=== PATIENT | male | born 1970 | race Caucasian/White ===

== ENCOUNTER → 2018-04-09 08:41 | Outpatient (CLI) | payer OTHER, SELFPAY ==
--- NOTE | 2018-04-09 08:45 | RAD_ITS ---
STUDY: X-RAY - PELVIS AND LEFT HIP REASON FOR EXAM: Male, 47 years old. Left hip pain, no known injury TECHNIQUE: Radiological exam, hip, unilateral, with pelvis when performed; 2 or 3 views. COMPARISON: None. FINDINGS: There is a non-specific bowel gas pattern. Normal visualized soft tissue structures. There is sclerosis of the superior left SI joint. Normal bilateral superior and inferior pubic rami. Normal pubic symphysis. Normal bilateral ischial tuberosities. There are moderate degenerative changes of the left hip joint. Mild degenerative changes of the right hip are also noted. There are degenerative changes of the visualized lower lumbar spine. RAD/Hip 2-3 Views with Pelvis IMPRESSION: 1. Moderate degenerative changes of the left hip joint, and mild degenerative changes of the right hip joint. 2. Sclerotic changes of the superior left SI joint. 3. Degenerative changes of the lower lumbar spine. Electronically Signed: Jarad Gardner MD at 17:53 EDT , Service support ,
== END ==
PROVIDERS: Family Provider Internal Medicine; PCP Internal Medicine; Visit Provider Orthopaedic Surgery
DX: M16.0 Bilateral primary osteoarthritis of hip (principal); M51.36 Other intervertebral disc degeneration, lumbar region
CPT/HCPCS: 73502

== ENCOUNTER 2018-05-28 16:30 | Outpatient (RCR) | payer OTHER, SELFPAY ==
--- NOTE | 2018-04-16 17:07 | HP.PTEVAL_ITS ---
Patient's Visit Information XAVIER MARC is a 47 year old M referred to Physical Therapy by Xavier Aquino DO with a diagnosis of L IT BAnd, Gt bursitis. Date of Evaluation: 04/16/18 Physical Therapist: Mercedez Franks - Visit Plan Frequency: 2x /Week Duration: 6 Weeks Plan: 2X/ week for 4-6 weeks for foam rolling to L hip and IT band, Stretching of B pirifomis, IT band, HS and gastroc, strengthening of B hip extensors, hip in general and core with HEP - Subjective Subjective: His hurt has been hurting for awhile. 3 years ago on the R he had achilles tendon with spurs. Dr Aquino saw a growth that is digging into the IT band. If he walks fast or long distances the hip is in a lot of pain. He had little relief with his achilles so he is not to excited about doing it with his hip. Walking long distances or walking fast.....his popping Dr Aquino thinks is from the band being so taught. He can lay on his L side. Stairs: he has a little bit of discomfort with ascending with the L leg...down is not too bad. - Pain L hip pain Pain Intensity (Out of 10): 1 Pain Intensity Range: 7 - Objective Gait: walks with decrease stance time on the L LE. Trunk AROM: flex 50%, ext 25%, SB B 50%. Tight B IT bands (L worse than R), piriformis (R worse than L), tight B HS and gastroc. No tenderness at the greater trochanter on the L. Tender along the L IT band. LE MMT: hip flex B 4+/5, hip abd R 4+/5 and L 4/5 , hip ext B 3+/5, knee flex R 4+/5 and L 4/5. B knee ext 4+/5, able to walk on heels and toes without difficulty but a little disconfort in the L hip. - Goals Goal 1:: I HEP Goal Time Frame: 2 Weeks Goal 2:: Decrease pain with walking to about 2/10 Goal Time Frame: 4-6 Weeks Goal 3:: Increase L LE flexabiltiy to be able to complete HS, Piriformis, and IT band stretches with out pain or difficulty Goal Time Frame: 4-6 Weeks Goal 4:: Increas B hip extensor strength to 4/5 Goal Time Frame: 4-6 Weeks - Rehabilitation Potential Rehabilitation Potential: Good - Anticipated Interventions Patient/Client Instruction: Educate patient on: Condition, Plan of Care For the Purpose of:: To decrease pain, To increase ROM, To improve nutrient delivery to tissue, To improve muscle performance and motor function, To improve ability to perform ADL's, To increase tolerance to activity/condition/ position, To improve performance and independence with ADL's, To improve health of tissue, To decrease soft tissue restriction, To increase flexibility/ROM Therapeutic Exercise to Include: Strength training, Flexibilty training, Passive ROM, Active ROM For the Purpose of:: To decrease pain, To increase ROM, To improve nutrient delivery to tissue, To improve muscle performance and motor function, To improve ability to perform ADL's, To increase tolerance to activity/condition/ position, To improve performance and independence with ADL's, To improve health of tissue, To decrease soft tissue restriction, To increase flexibility/ROM Manual Therapy Techniques to Include: Passive ROM, Soft tissue mobilization For the Purpose of:: To increase ROM, To improve nutrient delivery to tissue, To improve muscle performance and motor function, To improve health of tissue, To increase flexibility/ROM Thermo therapy (hot pack): Yes Ultrasound (thermal/non thermal): Yes For the Purpose of:: To decrease pain, To increase ROM, To improve nutrient delivery to tissue, To improve ability to perform ADL's Thank you for the opportunity to evaluate your patient. For Medicare and Medicare HMO plans, please review the plan of care and approve it. It will need to be FAXED BACK to us at [phone] for Medicare purposes. Please let me know if there are questions or concerns regarding this plan of care. Physician Signature: Date:
--- NOTE | 2018-05-09 16:30 | DT_ITS ---
This patient was seen during an EMR downtime May 05, 2018 - May 12, 2018. This patient may have a combination of paper and electronic documentation or all paper documentation. All documentation is viewable within the e-chart portion of [facility] for each patient visit.
--- NOTE | 2018-05-28 16:54 | HP.PTDCSUM ---
HP - PT D/C Summary It has been my pleasure to treat XAVIER MARC under orders from Xavier Aquino DO, for the diagnosis of L IT BAnd, Gt bursitis for a total of 6 visit(s). Discharge Date: 05/28/18 Please see the following information for a summary of their discharge status. - Subjective Subjective: dog got out and tried to catch him and he went about 3-4 blocks and both sides were both inflammed and could barely walk. He feel that the spurs need to comeout. Every day walking is ok but as soon as he goes fast or longer distances. He is going to schedule an appointment for a follow up because the problem is still there. Both sides were really inflammed after trying to get the dogs (-07/11) pain. He feels that the R is just as bad as the L. No N&T and then pain goes to the bottom of the hip. It literally feels that it is littlerally going to pop. He reports that he is foam rolling at home but everything is still tight. - Pain L hip pain Pain Intensity (Out of 10): 0 - Overall Improvement % Improvement: 10 - Objective Objective/Function: Pt pain is down to 2/10 with regular walking but if has to increase stride or speed the pain gets worse. Hip extension strength: LE flexability: tightness remains with ITband (and tenderness to palpation), HS and piriformis. Hip ext B strength 4/5 - Goals Goal 1:: I HEP Goal Progress: Goal Met Goal 2:: Decrease pain with walking to about 2/10 Goal Progress: Goal Met Goal 3:: Increase L LE flexabiltiy to be able to complete HS, Piriformis, and IT band stretches with out pain or difficulty Goal Progress: Progressing Goal 4:: Increas B hip extensor strength to 4/5 Goal Progress: Goal Met - Plan Plan: DC PT back to physician for reassessment. - D/C Information Discharge Comments: DC PT back to physican reassessment If there are questions or concerns regarding this patient's physical therapy, please feel free to call me at [phone]. Thank you for the referral of this patient. Sincerely, Mercedez Franks
== END 2018-05-28 18:21 | disposition home or self-care (01) ==
LOC: PT 16:30
PROVIDERS: Family Provider Internal Medicine; PCP Internal Medicine; Visit Provider Orthopaedic Surgery
DX: M76.32 Iliotibial band syndrome, left leg (principal); M70.62 Trochanteric bursitis, left hip
CPT/HCPCS: 97110; 97161; 97530

== ENCOUNTER → 2018-06-17 15:01 | Outpatient (CLI) | payer OTHER, SELFPAY ==
--- NOTE | 2018-06-17 15:03 | RAD_ITS ---
STUDY: X-RAY - PELVIS AND RIGHT HIP REASON FOR EXAM: Male, 47 years old. Pain TECHNIQUE: Radiological exam, hip, unilateral, with pelvis when performed; 2 or 3 views. COMPARISON: X-ray 04/09/2018 FINDINGS: There is no fracture. There is no osseous destruction. There is no osteonecrosis. The joint spaces are well maintained. The symphysis pubis and SI joints are intact. There is degenerative disease of the lumbar spine. RAD/Hip 2-3 Views with Pelvis IMPRESSION: Intact bony pelvis Degenerative disease of the lumbar spine No significant change Electronically Signed: Tommy Javier MD at 22:05 EDT Tel , Service support ,
== END ==
PROVIDERS: Family Provider Internal Medicine; PCP Internal Medicine; Visit Provider Orthopaedic Surgery
DX: M25.551 Pain in right hip (principal)
CPT/HCPCS: 73502

== ENCOUNTER → 2018-07-07 11:04 | Outpatient (CLI) | payer OTHER, SELFPAY ==
--- NOTE | 2018-07-07 11:16 | MRI_ITS ---
STUDY: MRI LEFT HIP REASON FOR EXAM: Left hip pain for 2 years. TECHNIQUE: Standardized fat and water weighted pulse sequences were obtained in all 3 orthogonal planes. COMPARISON: Radiographs 04/09/2018. FINDINGS: There is mild left hip arthrosis with small marginal osteophytes of the acetabulum and femoral head (T1 coronal image 17) and mild partial-thickness chondral loss (proton-density sagittal image 9). There is tear/degeneration of the left anterosuperior labrum (proton density sagittal images 9, 10). Normal femoral head. Normal femoral neck and intratrochanteric region. Normal gluteus minimus, medius and iliopsoas tendons and distal insertions. There is no trochanteric, iliopsoas or iliopectineal bursitis. Normal superior and inferior pubic rami. Normal pubic symphysis. Normal ischial tuberosity. Normal origin of the hamstring tendons. Normal visualized iliac wing, sacroiliac joint, and sacral ala. Normal visualized soft tissue structures of the pelvis. MRI/Lower Ext Joint Only (Routine) IMPRESSION: Mild left hip arthrosis. Tear/degeneration of the left anterosuperior labrum. No demonstrated trochanteric bursitis or gluteal tendinosis. Electronically Signed: Adriel Luther MD at 14:04 EDT Tel , Service support ,
== END ==
PROVIDERS: Family Provider Internal Medicine; PCP Internal Medicine; Visit Provider Orthopaedic Surgery
DX: M76.30 Iliotibial band syndrome, unspecified leg (principal); M70.62 Trochanteric bursitis, left hip; M76.02 Gluteal tendinitis, left hip
CPT/HCPCS: 73721

== ENCOUNTER → 2018-08-13 10:11 | Outpatient (CLI) | payer OTHER, SELFPAY ==
--- NOTE | 2018-08-13 10:35 | RAD_ITS ---
STUDY: X-RAY - LUMBAR SPINE REASON FOR EXAM: Male, 47 years old. Sciatic pain right side TECHNIQUE: 3 view(s) of the lumbar spine were obtained. COMPARISON: None FINDINGS: Normal lumbar lordosis. There is no substantial scoliosis. There is a normal alignment of the vertebrae. There is multilevel endplate spondylosis of the lumbar vertebrae. There is multi-level degenerative disc disease with multi-level disc space narrowing. There are atherosclerotic vascular calcifications. The soft tissue structures are unremarkable. RAD/Lumbar Spine 2 or 3 Views IMPRESSION: Degenerative changes of the spine, as detailed above. Electronically Signed: Dylan Valderrama MD at 17:15 EDT , Service support ,
== END ==
PROVIDERS: Family Provider Internal Medicine; PCP Internal Medicine; Visit Provider Anesthesiology Pain Medicine
DX: M47.896 Other spondylosis, lumbar region (principal); M51.36 Other intervertebral disc degeneration, lumbar region; M48.061 Spinal stenosis, lumbar region without neurogenic claudication
CPT/HCPCS: 72100

== ENCOUNTER → 2018-08-28 06:39 | Outpatient (CLI) | payer OTHER, SELFPAY ==
--- NOTE | 2018-08-28 06:47 | MRI_ITS ---
STUDY: MRI LUMBAR SPINE WITHOUT CONTRAST REASON FOR EXAM: Male, 47 years old. Back pain and right sciatica TECHNIQUE: Standardized fat and water weighted pulse sequences were obtained in the sagittal and axial planes. COMPARISON: None FINDINGS: T12-L1: Normal endplates. Normal disc height, hydration and morphology. Normal bilateral facet joints. Normal central canal and bilateral lateral recesses. Normal bilateral intervertebral neural foramina. Normal lumbar lordosis. There is no substantial scoliosis. Normal conus medullaris that terminates at T12-L1 L1-2: Mild endplate spurring.. Normal disc height, hydration and minimal annular bulge.. Normal bilateral facet joints. Normal central canal and bilateral lateral recesses. Normal bilateral intervertebral neural foramina. L2-3: Mild endplate spurring.. Normal disc height, desiccation and mild annular bulge. Minor facet arthropathy greater on the left.. Normal central canal. Mild right lateral recess and neuroforaminal encroachment with moderate narrowing on the left L3-4: Mild endplate spurring.. Normal disc height, desiccation and mild annular bulge. Minor facet arthropathy and thickening of ligamenta flava.. Minor narrowing the central canal. Moderate bilateral recess and neural foraminal stenosis exaggerated by shortened pedicles. L4-5: Mild endplate spurring.. Normal disc height, desiccation and moderate annular bulge. Bilateral facet arthropathy and thickening of ligamenta flava. Mild narrowing of the central canal. Moderate bilateral recess and neuroforaminal stenosis exaggerated by shortened pedicles L5-S1: Mild endplate spurring.. Normal disc height, desiccation and minor bulging annulus with small right posterolateral/foraminal disc protrusion. Bilateral facet arthropathy.. Normal central canal. Moderate bilateral recess. Moderate left lateral recess stenosis and more severe narrowing on the right. Normal visualized sacral ala. Normal visualized paraspinous soft tissue structures. MRI/Spine Lumbar (Routine) IMPRESSION: Multilevel spinal stenosis secondary to disc disease and facet arthropathy exaggerated by shortened pedicles most severe on the right at L5-S1. Findings as above. Electronically Signed: Sam Roche MD at 18:31 EDT , Service support ,
== END ==
PROVIDERS: Family Provider Internal Medicine; PCP Internal Medicine; Referring Provider Anesthesiology Pain Medicine; Visit Provider Anesthesiology Pain Medicine
DX: M48.07 Spinal stenosis, lumbosacral region (principal); M46.87 Other specified inflammatory spondylopathies, lumbosacral region; M79.606 Pain in leg, unspecified
CPT/HCPCS: 72148

== ENCOUNTER → 2018-09-15 08:05 | Outpatient (CLI) | payer OTHER, SELFPAY ==
--- NOTE | 2018-09-15 08:09 | US_ITS ---
STUDY: ABDOMINAL ULTRASOUND REASON FOR EXAM: Male, 47 years old. Hemochromatosis TECHNIQUE: Transabdominal ultrasound was performed with real-time and static becerril scale imaging. TECHNICAL QUALITY: Adequate. COMPARISON: May 03, 2017 FINDINGS: Liver: The liver measures 19 cm. There is increased echogenicity consistent with fatty infiltration. The bile ducts are within normal limits. There is hepatic color flow. The direction of portal flow is hepatopetal. There is no demonstrated mass lesion. Portal vein measurement: Gallbladder: Normal distended gallbladder. The gallbladder wall measures 2.5 mm. There is a negative sonographic Taylor's sign. An 8 mm stone is present in the gallbladder lumen. A 6 mm polyp versus focal adenomyomatosis is also present, unchanged. Common Bile Duct (C.B.D.): The common bile duct measures 4.6 mm. Pancreas: Normal size of the head, body and tail of the pancreas. There is normal echogenicity of the pancreas. There is no demonstrated pancreatic mass or cyst. Spleen: Normal size of the spleen. The spleen measures 11.5 cm. Right Kidney: Normal size of the right kidney. The right kidney measures 12.3 x 4.8 x 4.9 cm. Normal renal cortex. The right cortex measures 1.5 cm. There is no demonstrated renal mass or cyst. There is no right hydronephrosis. Left Kidney: Normal size of the left kidney. The left kidney measures 11.8 x 5.6 x 5.2 cm. Normal renal cortex. The left cortex measures 1.4 cm. There is no demonstrated renal mass or cyst. There is no left hydronephrosis. Aorta: Normal I.V.C.: The IVC is patent. There is no ascites. US/Abdomen Complete IMPRESSION: 8 mm gallstone. A 6 mm gallbladder polyp versus focal adenomyomatosis is also present, unchanged. Hepatomegaly and fatty liver. Mildly prominent common bile duct. Electronically Signed: Jama Cagle MD at 6:14 EDT Tel , Service support ,
== END ==
PROVIDERS: Family Provider Internal Medicine; PCP Internal Medicine; Referring Provider Nurse Practitioner Family; Visit Provider Nurse Practitioner Family
DX: E83.110 Hereditary hemochromatosis (principal)
CPT/HCPCS: 76700

== ENCOUNTER → 2019-05-11 06:43 | Outpatient (CLI) | payer OTHER, SELFPAY ==
[2019-03-18 14:59] VITALS: BMI 35.4
[2019-05-11 07:26] LABS: Absolute Lymphocyte Count 2.39 X10^3/ul (0.83-4.51); Absolute Neutrophil Count 2.5 X10^3/uL (2.0-7.7); Basophil# 0.05 X10^3/uL; Basophil% 0.9 % (0-1); Eosinophils% 1.7 % (0-5); Hemoglobin 15.8 g/dl (13.0-16.5); Lymphocyte # 2.39 X10^3/ul (4.0); Lymphocyte % 41.8 % (19-41); Mean Corp Hgb Conc 35.1 g/gl (32-36); Mean Corpuscular Hgb 31.8 pg (27.0-32.0); Mean Corpuscular Volume 90.5 fL (80-94); Mean Platelet Vol. 9.8 fl (6.2-12.0); Monocyte# 0.67 X10^3/uL; Monocyte% 11.7 % (0-10); Neutrophil # 2.51 X10^3/uL (2.7-7.7); Neutrophil % 43.9 % (47-70); Platelet Count 214 K/mm3 (150-450); RBC Distribution Width CV 12.6 % (11.6-14.6); RBC Distribution Width SD 41.5 fl (35.1-43.9); Red Blood Count 4.97 M/mm3 (4.6-6.2); White Blood Count 5.7 K/mm3 (4.4-11.0)
[2019-05-11 07:48] LABS: ALB/GLOB Ratio 1.1 RATIO (0.9-2.4); AST(SGOT) 16 U/L (15-37); Alanine Aminotransfer ALT/SGPT 26 U/L (16-61); Alkaline Phosphatase 56 U/L (45-117); Anion Gap 12 (5-15); BUN 18 mg/dL (7-18); BUN/Creat Ratio 16.1 RATIO (10-20); Calcium,Total 9.4 mg/dL (8.5-10.1); Chloride 104 mmol/L (98-107); Creatinine, Serum 1.12 mg/dL (0.70-1.30); EST Glomerular Filtration Rate 74 mL/min (>60); Est Glom Filt Rate - Afr Amer 89 mL/min (>60); Ferritin 46 ng/mL (26-388); Globulin 3.7 g/dL (2.2-4.2); Glucose 148 mg/dL (74-106); Potassium 3.8 mmol/L (3.5-5.1); Protein, Total 7.7 g/dL (6.4-8.2); Sodium Level 144 mmol/L (136-145)
[2019-05-11 07:57] LABS: POSITIVE COUNT NO; POSITIVE DIFFERENTIAL NO; POSITIVE MORPHOLOGY NO
== END ==
PROVIDERS: Family Provider Internal Medicine; PCP Internal Medicine; Referring Provider Nurse Practitioner Family; Visit Provider Nurse Practitioner Family
DX: E83.110 Hereditary hemochromatosis (principal)
CPT/HCPCS: 36415; 80053; 82728; 85025

== ENCOUNTER → 2019-08-10 06:55 | Outpatient (CLI) | payer OTHER, SELFPAY ==
[2019-05-13 15:05] VITALS: BMI 36.6
[2019-08-10 07:23] LABS: Absolute Lymphocyte Count 2.25 X10^3/uL (0.83-4.51); Absolute Neutrophil Count 2.8 X10^3/uL (2.0-7.7); Basophil# 0.07 X10^3/uL; Basophil% 1.2 % (0-1); Eosinophil# 0.22 X10^3/uL; Eosinophils% 3.7 % (0-5); Hemoglobin 14.3 g/dL (13.0-16.5); Lymphocyte # 2.25 X10^3/ul (4.0); Lymphocyte % 37.4 % (19-41); Mean Corp Hgb Conc 34.9 g/dL (32-36); Mean Corpuscular Hgb 31.1 pg (27.0-32.0); Mean Corpuscular Volume 89.1 fL (80-94); Mean Platelet Vol. 9.5 fl (6.2-12.0); Monocyte# 0.64 X10^3/uL; Monocyte% 10.6 % (0-10); NRBC Flagged by Analyzer 0 % (0-5); Neutrophil # 2.83 X10^3/uL (2.7-7.7); Neutrophil % 46.9 % (47-70); Platelet Count 200 K/mm3 (150-450); RBC Distribution Width CV 11.7 % (11.6-14.6); RBC Distribution Width SD 37.7 fl (35.1-43.9)
[2019-08-10 07:50] LABS: AST(SGOT) 17 U/L (15-37); Alanine Aminotransfer ALT/SGPT 27 U/L (16-61); Albumin, Serum 3.8 g/dL (3.2-5.0); Alkaline Phosphatase 59 U/L (45-117); Anion Gap 6 (5-15); BUN 15 mg/dL (7-18); BUN/Creat Ratio 12.5 RATIO (10-20); Calcium,Total 8.6 mg/dL (8.5-10.1); Chloride 103 mmol/L (98-107); EST Glomerular Filtration Rate 68 mL/min (>60); Est Glom Filt Rate - Afr Amer 82 mL/min (>60); Ferritin 70 ng/mL (26-388); Globulin 3.7 g/dL (2.2-4.2); Glucose 147 mg/dL (74-106); Iron 199 ug/dL (65-175); Iron Binding Capacity,Total 280 ug/dL (250-450); PERCENT IRON SATURATION 71.1 % (15.0-55.0); Potassium 3.7 mmol/L (3.5-5.1); Protein, Total 7.5 g/dL (6.4-8.2); Sodium Level 139 mmol/L (136-145)
== END ==
PROVIDERS: Family Provider Internal Medicine; PCP Internal Medicine; Referring Provider Internal Medicine Medical Oncology; Visit Provider Internal Medicine Medical Oncology
DX: E83.110 Hereditary hemochromatosis (principal)
CPT/HCPCS: 36415; 80053; 82728; 83540; 83550; 85025; A4216

== ENCOUNTER → 2019-11-09 06:46 | Outpatient (CLI) | payer OTHER, SELFPAY ==
[2019-08-12 15:03] VITALS: BMI 36.3
[2019-11-09 07:26] LABS: Absolute Lymphocyte Count 3.13 X10^3/uL (0.83-4.51); Basophil# 0.07 X10^3/uL; Eosinophil# 0.19 X10^3/uL; Eosinophils% 2.7 % (0-5); Hematocrit 44.4 % (40-54); Hemoglobin 15.4 g/dL (13.0-16.5); Lymphocyte # 3.13 X10^3/ul (4.0); Mean Corp Hgb Conc 34.7 g/dL (32-36); Mean Corpuscular Volume 89.3 fL (80-94); Mean Platelet Vol. 9.8 fl (6.2-12.0); Monocyte# 0.54 X10^3/uL; Monocyte% 7.8 % (0-10); NRBC Flagged by Analyzer 0 % (0-5); Neutrophil % 43.2 % (47-70); Platelet Count 258 K/mm3 (150-450); RBC Distribution Width CV 11.8 % (11.6-14.6); Red Blood Count 4.97 M/mm3 (4.6-6.2)
[2019-11-09 07:58] LABS: ALB/GLOB Ratio 1.1 RATIO (0.9-2.4); AST(SGOT) 15 U/L (15-37); Alanine Aminotransfer ALT/SGPT 28 U/L (16-61); Albumin, Serum 4.1 g/dL (3.2-5.0); Alkaline Phosphatase 59 U/L (45-117); Anion Gap 7 (5-15); BUN 20 mg/dL (7-18); BUN/Creat Ratio 18.7 RATIO (10-20); Calcium,Total 9.2 mg/dL (8.5-10.1); Chloride 103 mmol/L (98-107); Creatinine, Serum 1.07 mg/dL (0.70-1.30); EST Glomerular Filtration Rate 78 mL/min (>60); Est Glom Filt Rate - Afr Amer 94 mL/min (>60); Ferritin 85 ng/mL (26-388); Globulin 3.7 g/dL (2.2-4.2); Glucose 143 mg/dL (74-106); Iron 223 ug/dL (65-175); Iron Binding Capacity,Total 295 ug/dL (250-450); LDH 143 U/L (87-241); PERCENT IRON SATURATION 75.6 % (15.0-55.0); Potassium 3.5 mmol/L (3.5-5.1); Protein, Total 7.8 g/dL (6.4-8.2); Sodium Level 139 mmol/L (136-145)
[2019-11-09 14:49] LABS: Xtra Tube EP Lab EXTRA TUBE
== END ==
PROVIDERS: Family Provider Internal Medicine; PCP Internal Medicine; Referring Provider Internal Medicine Medical Oncology; Visit Provider Internal Medicine Medical Oncology
DX: E83.110 Hereditary hemochromatosis (principal)
CPT/HCPCS: 36415; 80053; 82728; 83540; 83550; 83615; 85025

== ENCOUNTER → 2019-11-10 17:22 | Outpatient (CLI) | payer OTHER, SELFPAY ==
[2019-08-12 15:03] VITALS: BMI 36.3
--- NOTE | 2019-11-10 17:35 | RAD_ITS ---
STUDY: X-RAY - CERVICAL SPINE REASON FOR EXAM: Male, 48 years old. Pain TECHNIQUE: 3 view(s) of the cervical spine were obtained. COMPARISON: None FINDINGS: Normal anterior atlantoaxial articulation. Normal odontoid process. Normal cervical lordosis. Normal vertebral bodies. Mild spurring at the mid cervical endplates between C4-C6. Normal disc space heights. The soft tissue structures are unremarkable. RAD/Cerv Spine 2 or 3 Views IMPRESSION: Mild degenerative changes of the visualized cervical spine. Electronically Signed: Manas Deutsch DO at 19:46 EST Tel [phone], Service support ,
== END ==
PROVIDERS: Family Provider Internal Medicine; PCP Internal Medicine; Referring Provider Anesthesiology Pain Medicine; Visit Provider Anesthesiology Pain Medicine
DX: M54.2 Cervicalgia (principal)
CPT/HCPCS: 72040

== ENCOUNTER → 2020-03-29 09:32 | Outpatient (CLI) | payer OTHER, SELFPAY ==
[2020-02-11 15:26] VITALS: BMI 36.8
[2020-03-29 10:16] LABS: Absolute Lymphocyte Count 2.06 X10^3/uL (0.83-4.51); Absolute Neutrophil Count 3.6 X10^3/uL (2.0-7.7); Basophil# 0.05 X10^3/uL; Basophil% 0.8 % (0-1); Eosinophil# 0.08 X10^3/uL; Eosinophils% 1.3 % (0-5); Hematocrit 43.2 % (40-54); Lymphocyte # 2.06 X10^3/ul (4.0); Lymphocyte % 32.7 % (19-41); Mean Corp Hgb Conc 34.7 g/dL (32-36); Mean Corpuscular Hgb 30.7 pg (27.0-32.0); Mean Corpuscular Volume 88.5 fL (80-94); Mean Platelet Vol. 9.7 fl (6.2-12.0); Monocyte% 7.9 % (0-10); NRBC Flagged by Analyzer 0 % (0-5); Neutrophil % 57.1 % (47-70); Platelet Count 224 K/mm3 (150-450); RBC Distribution Width SD 38.3 fl (35.1-43.9); Red Blood Count 4.88 M/mm3 (4.6-6.2); White Blood Count 6.3 K/mm3 (4.4-11.0)
[2020-03-29 10:20] LABS: Glucose, Dipstick 1000 mg/dl (Normal); Ketone-Dipstick 5 mg/dl (Negative); Leukocyte Esterase-Dipstick Negative /ul (Negative); Nitrite-Dipstick Negative (Negative); Occult Blood-Urine 25 /ul (Negative); Protein-Dipstick 30 mg/dl (Negative); Specific Gravity, Urine 1.025 (1.002-1.030); Urine Bilirubin Dipstick Negative (Negative); Urine Urobilinogen Normal (Normal)
[2020-03-29 10:25] LABS: Color, Urine Yellow (Yellow); Urine Clarity Sl Cloudy (Clear)
[2020-03-29 10:40] LABS: Microalbumin,Random Urine 45.7 mg/L (NO RANGE EST.); Microalbumin:Creatinine Ratio 26.4 mg/g CRE (<30 mg/g CRE)
[2020-03-29 10:51] LABS: Hemoglobin A1c 7.7 % (4.2-6.3)
[2020-03-29 10:56] LABS: ALB/GLOB Ratio 1.2 RATIO (0.9-2.4); AST(SGOT) 18 U/L (15-37); Alanine Aminotransfer ALT/SGPT 30 U/L (16-61); Alkaline Phosphatase 60 U/L (45-117); Anion Gap 6 (5-15); BUN 16 mg/dL (7-18); BUN/Creat Ratio 16.9 RATIO (10-20); Calcium,Total 8.9 mg/dL (8.5-10.1); Chloride 103 mmol/L (98-107); Cholesterol 127 mg/dL (200); Creatinine, Serum 0.94 mg/dL (0.70-1.30); EST Glomerular Filtration Rate 89 mL/min (>60); Est Glom Filt Rate - Afr Amer 108 mL/min (>60); Globulin 3.4 g/dL (2.2-4.2); Glucose 153 mg/dL (74-106); High Density Lipoprotein 46 mg/dL; Potassium 3.4 mmol/L (3.5-5.1); Protein, Total 7.4 g/dL (6.4-8.2); Sodium Level 137 mmol/L (136-145); Thyroid Stim Hormone (TSH) 0.02 uIU/mL (0.358-3.74); Triglycerides 122 mg/dL; Very Low Density Lipoprotein 24 mg/dL (5-40)
== END ==
PROVIDERS: PCP Internal Medicine; Referring Provider Internal Medicine; Visit Provider Internal Medicine
DX: E78.2 Mixed hyperlipidemia (principal); E11.65 Type 2 diabetes mellitus with hyperglycemia; E03.9 Hypothyroidism, unspecified; Z12.5 Encounter for screening for malignant neoplasm of prostate
CPT/HCPCS: 36415; 80053; 80061; 81002; 82043; 82570; 83036; 84153; 84443; 85025; G0103

== ENCOUNTER → 2020-05-13 08:00 | Outpatient (CLI) | payer OTHER, SELFPAY ==
[2020-02-11 15:26] VITALS: BMI 36.8
--- NOTE | 2020-05-13 08:07 | RAD_ITS ---
STUDY: X-RAY - THORACIC SPINE REASON FOR EXAM: Male, 49 years old. PAIN IN UPPER BACK BETWEEN SHOULDER BLADES FOR YEARS. NO KNOWN INJURY. PATIENT STATES HAS A HX OF SPINAL STENOSIS. TECHNIQUE: 3 view(s) of the thoracic spine were obtained. COMPARISON: None. FINDINGS: There is an increase in the normal thoracic kyphosis. There is no substantial scoliosis. There is demineralization of the thoracic spine with endplate spondylosis. There is multilevel disc space narrowing of the thoracic spine. The soft tissue structures are unremarkable. RAD/Thoracic Spine 3 Views IMPRESSION: Multilevel disc space narrowing and degeneration anterior spondylosis. Electronically Signed: Rodrigo Ha, at 11:04 EDT , Service support ,
== END ==
PROVIDERS: PCP Internal Medicine; Referring Provider Anesthesiology Pain Medicine; Visit Provider Anesthesiology Pain Medicine
DX: M47.814 Spondylosis without myelopathy or radiculopathy, thoracic region (principal); M48.04 Spinal stenosis, thoracic region
CPT/HCPCS: 72072

== ENCOUNTER → 2020-08-09 06:45 | Outpatient (CLI) | payer OTHER, SELFPAY ==
[2020-02-11 15:26] VITALS: BMI 36.8
[2020-08-09 07:31] LABS: Absolute Lymphocyte Count 2.36 X10^3/uL (0.83-4.51); Absolute Neutrophil Count 1.8 X10^3/uL (2.0-7.7); Basophil# 0.04 X10^3/uL; Basophil% 0.8 % (0-1); Eosinophil# 0.16 X10^3/uL; Eosinophils% 3.3 % (0-5); Hematocrit 41.7 % (40-54); Hemoglobin 14.5 g/dL (13.0-16.5); Lymphocyte # 2.36 X10^3/ul (4.0); Lymphocyte % 48.5 % (19-41); Mean Corp Hgb Conc 34.8 g/dL (32-36); Mean Corpuscular Hgb 31.7 pg (27.0-32.0); Mean Corpuscular Volume 91.2 fL (80-94); Mean Platelet Vol. 9.8 fl (6.2-12.0); Monocyte# 0.47 X10^3/uL; Monocyte% 9.7 % (0-10); NRBC Flagged by Analyzer 0 % (0-5); Neutrophil # 1.83 X10^3/uL (2.7-7.7); Neutrophil % 37.5 % (47-70); Platelet Count 227 K/mm3 (150-450); RBC Distribution Width CV 12.4 % (11.6-14.6); RBC Distribution Width SD 41.4 fl (35.1-43.9); Red Blood Count 4.57 M/mm3 (4.6-6.2); White Blood Count 4.9 K/mm3 (4.4-11.0)
[2020-08-09 08:17] LABS: ALB/GLOB Ratio 1.1 RATIO (0.9-2.4); AST(SGOT) 18 U/L (15-37); Alanine Aminotransfer ALT/SGPT 24 U/L (16-61); Albumin, Serum 3.9 g/dL (3.2-5.0); Alkaline Phosphatase 53 U/L (45-117); Anion Gap 5 (5-15); BUN 17 mg/dL (7-18); BUN/Creat Ratio 16.2 RATIO (10-20); Calcium,Total 8.9 mg/dL (8.5-10.1); Chloride 105 mmol/L (98-107); Creatinine, Serum 1.05 mg/dL (0.70-1.30); EST Glomerular Filtration Rate 79 mL/min (>60); Est Glom Filt Rate - Afr Amer 96 mL/min (>60); Ferritin 78 ng/mL (26-388); Globulin 3.4 g/dL (2.2-4.2); Glucose 110 mg/dL (74-106); LDH 158 U/L (87-241); Potassium 3.4 mmol/L (3.5-5.1); Protein, Total 7.3 g/dL (6.4-8.2); Sodium Level 138 mmol/L (136-145)
[2020-08-09 14:51] LABS: Xtra Tube EP Lab EXTRA TUBE
== END ==
PROVIDERS: PCP Internal Medicine; Referring Provider Internal Medicine Medical Oncology; Visit Provider Internal Medicine Medical Oncology
DX: E83.110 Hereditary hemochromatosis (principal)
CPT/HCPCS: 36415; 80053; 82728; 83615; 85025

== ENCOUNTER 2020-09-06 17:49 | Emergency (ER) | payer OTHER, SELFPAY ==
[2020-02-11 15:26] VITALS: BMI 36.8
[2020-09-06 17:50] VITALS: BP 135/83; PULSE 82; RESP 16; TEMP 35.7; O2SAT 99; BMI 36.6
--- NOTE | 2020-09-06 18:55 | ED.DCSUM_ITS ---
History of Present Illness Chief Complaint: Back Informant: Patient Narrative: 49-year-old male presents with concern for right hip pain. Patient states he has had spinal stenosis and pain in his bilateral lower back for many years. States that he was seen at an orthopedist approximately 1 year ago and was told that if he has pain going into his groin be concerned about his hip. Patient states over the past week he has had pain radiating into his groin. States is aching worse with movement. Denies any new trauma. Denies any numbness or tingling. No relieving factors. Does get injections into his back by pain management but is not had one of these in multiple months. Past Medical History - Allergies and Home Meds Allergies/Adverse Reactions: Allergies No Known Allergies Allergy (Verified 09/06/20 17:49) Primary Care Physician: Berenice Tarango DO [Primary Care Provider] - Past Medical History: - - spinal stenosis, hemachomatosis Smoking Status: Never smoker Review of Systems General: Denies: Chills, Fever, Sweats Eyes: Denies: Visual changes - bilaterally, Diplopia ENT: Denies: Rhinorrhea, Sore throat Cardiovascular: Denies: Chest pain, Palpitations Respiratory: Denies: Dyspnea, Cough, Dyspnea on exertion Gastrointestinal: Denies: Abdominal pain, Nausea, Vomiting, Diarrhea, Melena, Hematochezia Genitourinary: Denies: Dysuria, Hematuria, Frequency Musculoskeletal: Reports: Arthralgias. Denies: Back pain, Extremity Pain Skin: Denies: Rash, Wounds Neurological: Denies: Headache, Weakness, Numbness Physical Exam Vital Signs/Narrative: Vital Signs Temp Pulse Resp BP Pulse Ox 09/06/20 17:50 96.2 F L 82 16 135/83 H 99 Inital Vital Signs reviewed: Yes General: Well nourished, Well developed, No Acute Distress Head: Normocephalic, Atraumatic Eyes: Perrl, EOMI ENT: Moist mucous membranes, No rhinorrhea Neck: Supple, Nontender Cardiovascular: Regular rate, Regular rhythm, No murmurs Respiratory: No distress, CTA bilaterally, Chest nontender Abdomen: Soft, Nontender, Nondistended, Normal bowel sounds Back: Nontender, Normal Inspection Extremities: No edema, - - TTP over the right piriformis. No midline tenderness. Full ROM of the right hip. Skin: Normal color, No rash Neurological: Alert, Oriented x3, Cranial nerves II-XII grossly intact, Normal S trength, Normal Sensation Psychological: Normal affect, Normal Mood Diagnostic/Tx/Re-eval Clinical Impression(s) from Imaging Studies Hip/Pelvis X-Ray 09/06/20 19:07 IMPRESSION: Normal x-ray examination of the pelvis and hip. Electronically Signed: Chris June MD at 19:51 EDT , Service support , - Medical Decision Making Patient appears well and nontoxic. Vital signs within normal limits. X-ray of the right hip negative. Patient given Toradol. Advised on Motrin, Tylenol, orthopedic follow-up. Asked to return for new or worsening symptoms. Discharged home in stable condition. Impression: 1. Hip pain 2. Chronic lumbar back pain ED Disposition - Plan for ED Patient: Disposition: Home or Assisted Living Instructions: ED Back Pain Acute or Chronic Referrals: Berenice Tarango DO [Primary Care Provider] -
--- NOTE | 2020-09-06 19:07 | RAD_ITS ---
STUDY: X-RAY - PELVIS AND RIGHT HIP REASON FOR EXAM: Male, 49 years old. INCREASING LOW BACK PAIN AND RIGHT SIDED HIP PAIN THIS WEEK. HX OF SPINAL STENOSIS. TECHNIQUE: 3 views of the pelvis and hip. COMPARISON: 06/17/2018. FINDINGS: There is a non-specific bowel gas pattern. Normal visualized soft tissue structures. Normal bilateral iliac wings, sacroiliac joints and visualized sacrum. Normal bilateral superior and inferior pubic rami. Normal pubic symphysis. Normal bilateral ischial tuberosities. Normal visualized femoral head. Normal acetabulum. Normal hip joint. RAD/HIP, UNI W/ Pelvis 2-3 Views IMPRESSION: Normal x-ray examination of the pelvis and hip. Electronically Signed: Chris June MD at 19:51 EDT , Service support ,
[2020-09-06] MEDS: Ketorolac 15 MG/ML Vial IM (19:33)
[2020-09-06 20:32] VITALS: BP 133/87; PULSE 86; RESP 16
== END 2020-09-06 20:33 | disposition home or self-care (01) ==
PROVIDERS: Emergency Provider Emergency Medicine; PCP Internal Medicine
DX: M25.551 Pain in right hip (principal); M54.5 Low back pain; G89.29 Other chronic pain; Z79.82 Long term (current) use of aspirin
CPT/HCPCS: 73502; 96372; 99282

== ENCOUNTER → 2020-11-07 06:48 | Outpatient (CLI) | payer OTHER, SELFPAY ==
[2020-11-07 07:12] LABS: Absolute Lymphocyte Count 2.31 X10^3/uL (0.83-4.51); Absolute Neutrophil Count 3.1 X10^3/uL (2.0-7.7); Basophil# 0.06 X10^3/uL; Basophil% 0.9 % (0-1); Eosinophil# 0.26 X10^3/uL; Eosinophils% 4.1 % (0-5); Hematocrit 42.2 % (40-54); Hemoglobin 14.5 g/dL (13.0-16.5); Lymphocyte # 2.31 X10^3/ul (4.0); Lymphocyte % 36.1 % (19-41); Mean Corp Hgb Conc 34.4 g/dL (32-36); Mean Corpuscular Hgb 31.5 pg (27.0-32.0); Mean Corpuscular Volume 91.5 fL (80-94); Mean Platelet Vol. 9.9 fl (6.2-12.0); Monocyte# 0.63 X10^3/uL; Monocyte% 9.8 % (0-10); NRBC Flagged by Analyzer 0 % (0-5); Neutrophil # 3.12 X10^3/uL (2.7-7.7); Neutrophil % 48.8 % (47-70); Platelet Count 297 K/mm3 (150-450); RBC Distribution Width CV 13.2 % (11.6-14.6); RBC Distribution Width SD 41.1 fl (35.1-43.9); Red Blood Count 4.61 M/mm3 (4.6-6.2); White Blood Count 6.4 K/mm3 (4.4-11.0)
[2020-11-07 07:30] LABS: ALB/GLOB Ratio 1.1 RATIO (0.9-2.4); AST(SGOT) 13 U/L (15-37); Alanine Aminotransfer ALT/SGPT 34 U/L (16-61); Albumin, Serum 4.1 g/dL (3.2-5.0); Alkaline Phosphatase 68 U/L (45-117); Anion Gap 6 (5-15); BUN 21 mg/dL (7-18); BUN/Creat Ratio 17.8 RATIO (10-20); Calcium,Total 9.2 mg/dL (8.5-10.1); Chloride 103 mmol/L (98-107); Creatinine, Serum 1.18 mg/dL (0.70-1.30); EST Glomerular Filtration Rate 69 mL/min (>60); Est Glom Filt Rate - Afr Amer 83 mL/min (>60); Ferritin 194 ng/mL (26-388); Globulin 3.8 g/dL (2.2-4.2); Glucose 152 mg/dL (74-106); LDH 166 U/L (87-241); Potassium 3.7 mmol/L (3.5-5.1); Protein, Total 7.9 g/dL (6.4-8.2); Sodium Level 138 mmol/L (136-145)
[2020-11-07 14:54] LABS: Xtra Tube EP Lab EXTRA TUBE
== END ==
PROVIDERS: PCP Internal Medicine; Referring Provider Internal Medicine Medical Oncology; Visit Provider Internal Medicine Medical Oncology
DX: E83.110 Hereditary hemochromatosis (principal)
CPT/HCPCS: 36415; 80053; 82728; 83615; 85025

== ENCOUNTER → 2021-01-30 06:55 | Outpatient (CLI) | payer OTHER, SELFPAY ==
[2020-11-09 15:23] VITALS: BMI 36.1
[2021-01-30 07:23] LABS: Absolute Lymphocyte Count 2.14 X10^3/uL (0.83-4.51); Absolute Neutrophil Count 3.6 X10^3/uL (2.0-7.7); Basophil# 0.06 X10^3/uL; Basophil% 0.9 % (0-1); Eosinophil# 0.13 X10^3/uL; Hemoglobin 16.2 g/dL (13.0-16.5); Lymphocyte # 2.14 X10^3/ul (4.0); Lymphocyte % 33.1 % (19-41); Mean Corp Hgb Conc 35.2 g/dL (32-36); Mean Corpuscular Hgb 32.4 pg (27.0-32.0); Mean Platelet Vol. 9.7 fl (6.2-12.0); Monocyte# 0.54 X10^3/uL; Monocyte% 8.3 % (0-10); NRBC Flagged by Analyzer 0 % (0-5); Neutrophil # 3.58 X10^3/uL (2.7-7.7); Neutrophil % 55.4 % (47-70); Platelet Count 253 K/mm3 (150-450); RBC Distribution Width SD 40.2 fl (35.1-43.9); White Blood Count 6.5 K/mm3 (4.4-11.0)
[2021-01-30 07:43] LABS: ALB/GLOB Ratio 1.1 RATIO (0.9-2.4); AST(SGOT) 16 U/L (15-37); Alanine Aminotransfer ALT/SGPT 28 U/L (16-61); Albumin, Serum 4.1 g/dL (3.2-5.0); Alkaline Phosphatase 62 U/L (45-117); Anion Gap 10 (5-15); BUN 19 mg/dL (7-18); Calcium,Total 9.2 mg/dL (8.5-10.1); Chloride 99 mmol/L (98-107); Creatinine, Serum 1.19 mg/dL (0.70-1.30); EST Glomerular Filtration Rate 68 mL/min (>60); Est Glom Filt Rate - Afr Amer 83 mL/min (>60); Ferritin 66 ng/mL (26-388); Globulin 3.9 g/dL (2.2-4.2); Glucose 156 mg/dL (74-106); LDH 171 U/L (87-241); Potassium 3.7 mmol/L (3.5-5.1); Sodium Level 137 mmol/L (136-145)
[2021-01-31 10:15] LABS: AFP, Tumor Marker 1.5 ng/mL (0.0-8.3)
== END ==
PROVIDERS: PCP Internal Medicine; Referring Provider Internal Medicine Medical Oncology; Visit Provider Internal Medicine Medical Oncology
DX: E83.110 Hereditary hemochromatosis (principal)
CPT/HCPCS: 36415; 80053; 82105; 82728; 83615; 85025

== ENCOUNTER 2021-02-16 08:17 | Outpatient (RCR) | payer OTHER, SELFPAY ==
[2021-02-01 14:38] VITALS: BMI 36.3
[2021-02-16] MEDS: COVID-19 VACC, MRNA(PFIZER)/PF 30 MCG/0.3 ML SYRINGE IM (15:01)
[2021-03-09] MEDS: COVID-19 VACC, MRNA(PFIZER)/PF 30 MCG/0.3 ML SYRINGE IM (14:15)
== END 2021-02-16 23:59 ==
LOC: IMMUN 08:17
PROVIDERS: PCP Internal Medicine; Visit Provider Family Medicine
DX: Z23 Encounter for immunization (principal)
CPT/HCPCS: 0001A; 0002A; 91300

== ENCOUNTER → 2021-04-25 06:37 | Outpatient (CLI) | payer OTHER, SELFPAY ==
[2021-02-01 14:38] VITALS: BMI 36.3
--- NOTE | 2021-04-25 06:44 | MRI_ITS ---
STUDY: MRI LEFT ANKLE WITHOUT CONTRAST REASON FOR EXAM: Left posterior and lateral heel pain, evaluate for Achilles tendinitis/possible tear. TECHNIQUE: Standardized fat and water weighted pulse sequences were obtained in all 3 orthogonal planes. COMPARISON: None. FINDINGS: There is a lobulated ganglion cyst anterior to the submalleolar peroneal tendon sheath (T2 axial images 18, 19; T1 sagittal images 18, 19) measuring 1.7 x 1.0 x 1.7 cm (AP x transverse x length). There is a small ganglion cyst posterior to the posterior talofibular ligament (T2 axial image 15) measuring 1.0 cm in transverse and length dimensions. Normal posterior tibialis tendon. Normal flexor digitorum longus tendon. Normal flexor hallucis longus tendon. Normal peroneus longus and brevis tendons. Normal tibialis anterior tendon. Normal extensor hallucis longus tendon. Normal extensor digitorum longus tendons. There is very mild distal Achilles tendinosis with very mild increased intrasubstance signal (inversion recovery series 10 images 20-22) without discrete tendon tear. There is a plantar calcaneal enthesophyte (T1 sagittal image 11). There is no retrocalcaneal bursitis. Normal plantar fascia. There is a small plantar calcaneal enthesophyte. There is mild atrophy with mild partial fat replacement of the abductor digiti minimi muscle (T1 sagittal image 18). Normal distal tibiofibular syndesmotic ligamentous complex. There is mild thickening of the anterior talofibular ligament (T2 axial image 17) suggestive of scarring. Normal calcaneofibular and posterior talofibular ligaments. Normal subtalar ligaments and sinus tarsi. Normal deltoid ligamentous complexes. Normal plantar calcaneonavicular (spring) ligament. Normal tibiotalar articulation. Normal talar dome. Normal subtalar articulations. Normal talonavicular articulation. Normal calcaneocuboid articulation. Normal navicular-cuneiform articulations. MRI/Lower Ext Joint Only (Routine) IMPRESSION: Very mild Achilles tendinosis without demonstrated Achilles tendon tear. Mild scarring of the anterior talofibular ligament. Posterior and plantar calcaneal enthesopathy. Ganglion cyst anterior to the peroneal tendon sheath and a small ganglion cyst posterior to the posterior talofibular ligament. Mild atrophy of the abductor digiti minimi muscle. Electronically Signed: Adriel Luther MD at 10:10 EDT Tel , Service support ,
== END ==
PROVIDERS: PCP Internal Medicine; Referring Provider Podiatrist; Visit Provider Podiatrist
DX: M76.62 Achilles tendinitis, left leg (principal); M67.472 Ganglion, left ankle and foot
CPT/HCPCS: 73721

== ENCOUNTER → 2021-05-02 10:02 | Outpatient (CLI) | payer OTHER, SELFPAY ==
[2021-02-01 14:38] VITALS: BMI 36.3
[2021-05-02 10:54] LABS: Absolute Lymphocyte Count 1.89 X10^3/uL (0.83-4.51); Absolute Neutrophil Count 2.8 X10^3/uL (2.0-7.7); Basophil# 0.06 X10^3/uL; Basophil% 1.1 % (0-1); Eosinophil# 0.08 X10^3/uL; Eosinophils% 1.5 % (0-5); Hematocrit 43.3 % (40-54); Hemoglobin 15.1 g/dL (13.0-16.5); Lymphocyte # 1.89 X10^3/ul (0.83-4.51); Mean Corp Hgb Conc 34.9 g/dL (32-36); Mean Corpuscular Hgb 30.8 pg (27.0-32.0); Mean Corpuscular Volume 88.2 fL (80-94); Mean Platelet Vol. 9.8 fl (6.2-12.0); Monocyte# 0.38 X10^3/uL; Monocyte% 7.2 % (0-10); NRBC Flagged by Analyzer 0 % (0-5); Neutrophil # 2.83 X10^3/uL (2.7-7.7); Platelet Count 216 K/mm3 (150-450); RBC Distribution Width CV 11.9 % (11.6-14.6); RBC Distribution Width SD 38.2 fl (35.1-43.9); Red Blood Count 4.91 M/mm3 (4.6-6.2); White Blood Count 5.3 K/mm3 (4.4-11.0)
[2021-05-02 11:51] LABS: ALB/GLOB Ratio 1.2 RATIO (0.9-2.4); AST(SGOT) 21 U/L (15-37); Alanine Aminotransfer ALT/SGPT 26 U/L (16-61); Albumin, Serum 4.1 g/dL (3.2-5.0); Alkaline Phosphatase 55 U/L (45-117); Anion Gap 6 (5-15); BUN 20 mg/dL (7-18); BUN/Creat Ratio 18.3 RATIO (10-20); Calcium,Total 9.2 mg/dL (8.5-10.1); Chloride 102 mmol/L (98-107); Creatinine, Serum 1.09 mg/dL (0.70-1.30); EST Glomerular Filtration Rate 75 mL/min (>60); Est Glom Filt Rate - Afr Amer 91 mL/min (>60); Ferritin 69 ng/mL (26-388); Free T3 2.3 pg/mL (2.18-3.98); Globulin 3.5 g/dL (2.2-4.2); Glucose 117 mg/dL (74-106); LDH 139 U/L (87-241); Potassium 3.8 mmol/L (3.5-5.1); Protein, Total 7.6 g/dL (6.4-8.2); Sodium Level 136 mmol/L (136-145); T4 Free Direct 1.31 ng/dL (0.76-1.46); Thyroid Stim Hormone (TSH) 0.64 uIU/mL (0.358-3.74)
[2021-05-03 12:54] LABS: AFP, Tumor Marker 1.6 ng/mL (0.0-8.3)
== END ==
PROVIDERS: Internal Medicine Medical Oncology; PCP Internal Medicine; Referring Provider Internal Medicine; Visit Provider Internal Medicine
DX: E11.9 Type 2 diabetes mellitus without complications (principal); E83.110 Hereditary hemochromatosis; R94.6 Abnormal results of thyroid function studies
CPT/HCPCS: 36415; 80053; 82105; 82728; 83036; 83615; 84439; 84443; 84481; 85025

== ENCOUNTER 2021-06-02 07:28 | Day surgery (SDC) | payer OTHER, SELFPAY ==
[2021-02-01 14:38] VITALS: BMI 36.3
[2021-06-02 08:29] VITALS: BP 119/60; PULSE 84; RESP 16; TEMP 36.9; O2SAT 99; BMI 35.6
[2021-06-02] MEDS: Lactated Ringers 1,000 ML 100 ML IV (08:53)
--- NOTE | 2021-06-02 09:00 | RAD_ITS ---
STUDY: X-RAY - LEFT ANKLE REASON FOR EXAM: Male, 50 years old. Detach/Reattach Achilles Tendon TECHNIQUE: Lateral view(s) of the ankle. COMPARISON: None. FINDINGS: Intraoperative exam demonstrates soft tissue defect of the posterior ankle with smooth margin of the superior calcaneus compatible with surgery. RAD/Ankle min 3 Views IMPRESSION: Intraoperative fluoroscopic image for surgery of the superior/posterior calcaneus. Please see procedural report. Electronically Signed: Buzz Blanco MD ([place]) at 15:56 EDT , Service support ,
--- NOTE | 2021-06-02 09:00 | TESH_PTH ---
PATIENT: XAVIER MARC LOC: [facility] U#:[id number] AGE/SX: 50/M ROOM: RE06/02/[address]: Dr. Sam Ferguson DPM : 1970 BED: DIS: 06/02/2021 SPEC #: [id number] RECD: 06/02/21 12:55 STATUS: KENDRA RIKY #: [id number] STEFAN: 06/02/21 09:[address]: Sam Ferguson DEPT: SURGICAL PATHOLOGY RECD BY: Ciarra Kaplan ENTERED: 06/02/21 13:27 SP TYPE: TENDON OTHR DR: Dr. Berenice Tarango, DO Tissues: A - Tendon, NOS B - GANGLION CYST Procedures: Decalcification bone/plaque Surgery Specimen Level III Surgery Specimen Level IV HEADER OPERATION: Detach/reattach Achilles tendon PRE-OP DIAGNOSIS: Achilles tendonosis with retrocalcaneal spur, left; ganglion cyst left ankle TISSUE SUBMITTED: A - Achilles tendon, Shira?s deformity of left heel, B - Ganglion cyst peroneal tendon MICROSCOPIC DIAGNOSIS A. Achilles tendon of left heel, biopsy: Osseocartilaginous tissue with degenerative change. B. Cyst of peroneal tendon, biopsy: Consistent with synovial cyst. AM:jennifer 06/06/2021 MICROSCOPIC DESCRIPTION Slides are reviewed. GROSS DESCRIPTION A - Received in fixative is one container labeled with the patient's name and designated Achilles tendon, Shira's deformity of left heel. The specimen consists of a piece of bone measuring 3.5 x 3 x 1 cm. Also present in the container are small pieces of soft tissue measuring in aggregate 2.5 x 1 x 0.2 cm. Cnc Cutting Operator sections are submitted in two cassettes as follows: 1 ? soft tissue, 2 ? bone after decalcification. B - Received in fixative is one container labeled with the patient's name and designated Ganglion cyst peroneal tendon. The specimen consists of multiple pieces of cano soft tissue that in aggregate measure 3.5 x 3.5 x 0.5 cm. Pieces of skeletal muscle tissue are also noted. No gross cyst is identified. The entire specimen is submitted in three cassettes. / SJ:jennifer 06/02/21 TC:5 CPT:
--- NOTE | 2021-06-02 09:11 | DCINST_ITS ---
Discharge Instructions Diet Discharge Diet: Light diet - advance as tolerated Activity Discharge Activity: May Not Drive Weight Bearing Status: No weight bearing (No weightbearing left foot) Keep extremity elevated above heart level: Left Leg Additional Activity Instructions:: Keep left foot and ankle elevated using pillows with heel offloading/floating - keep elevated for at least 50 minutes of every hour. Dressing / Incision Call your doctor if your incision/area has: Continuous Slow Oozing, Sudden Increased Bleeding and Foul Smelling Discharge Call your doctor if you observe: Fever of 101 or Higher, Shortness of breath, Fainting spells, Chest pain, Increased palpitations (irregular heartbeat), Calf discomfort and Uncontrolled pain Change Dressing in: do not change dressing Remove Dressing in: do not remove dressing Cleanse incision/area with: Do not get Incision Wet Follow Up Care Please Follow Up With: Sam Ferguson DPM When: in 1 week, sooner if needed. Call Dr. Ferguson over weekend if needed at [phone] (cell) or page through [facility] at [phone] Test Results: Test results from this visit will be discussed in further detail at your follow-up appointment, if applicable. Starting 06/03/2021Saturday morning - take two 81mg baby aspirin (for a total of 162mg) by mouth once a day. Discharge Plan Admission Attending Provider: Sam Ferguson Primary Care Provider: Berenice Tarango Discharge Orders/Prescriptions Prescriptions: New hydrocodone-acetaminophen 5-325 mg tablet 1 tab PO Q6H 4 Days Qty: 20 RF: 0 No Action glimepiride 2 MG tablet 1 tab PO BID RF: 0 metformin 1,000 MG tablet 1,000 mg PO BID RF: 0 levothyroxine 200 MCG tablet 200 mcg PO MOTUWETHFR RF: 0 olmesartan-hydrochlorothiazide 1 TAB tablet 1 tab PO DAILY RF: 0 amlodipine 2.5 MG tablet 2.5 mg PO QHS RF: 0 metoprolol tartrate 50 MG tablet 50 mg PO QHS RF: 0 cetirizine 10 MG tablet 10 mg PO DAILY RF: 0 aspirin 81 MG tablet,delayed release (DR/EC) 81 mg PO DAILY RF: 0 rosuvastatin 10 MG tablet 10 mg PO DAILY RF: 0 duloxetine 60 MG capsule 60 mg PO DAILY RF: 0 dulaglutide 1.5 MG/0.5 ML pen injector 1.5 mg SQ QWEEK RF: 0 meclizine [Motion Sickness Relief(mecliz)] 25 MG tablet 25 mg PO PRN PRN (Reason: Dizziness) RF: 0 cholecalciferol (vitamin D3) 5,000 UNIT capsule 6,000 unit PO DAILY RF: 0 Farxiga 20 mg PO DAILY RF: 0 potassium chloride 20 MEQ tablet 40 meq PO SA RF: 0 Potassium Chloride [Klor-Con M20] 20 MEQ Tab.Er.Prt 20 meq PO SUMOTUWETHFR RF: 0 levothyroxine 100 mcg Tablet 100 mcg PO SUSA RF: 0 Referrals / Follow Up: Berenice Tarango DO [Primary Care Provider] - Disposition Disposition (needs filled in before D/C Order can be placed): Home, Self Care
[2021-06-02] MEDS: Cefazolin 2 GM in 0.9% Normal Saline 100 ML IV (09:17)
[2021-06-02 10:31] LABS: Bedside Glucose 172 mg/dL (70-110)
[2021-06-02] MEDS: Bupivacaine Mpf 0.5% 30 ML VIAL (11:18)
--- NOTE | 2021-06-02 11:39 | RAD_ITS ---
STUDY: X-RAY - LEFT CALCANEUS REASON FOR EXAM: Male, 50 years old. Post op TECHNIQUE: 5 view(s) of the calcaneus were obtained. COMPARISON: None. FINDINGS: Small plantar spur. There is evidence of resection along the posterior-superior aspect of the calcaneus. There is evidence of prior hardware removal. Postoperative soft tissue changes. RAD/Calcaneus min 2 Views IMPRESSION: Evidence of prior hardware removal and prior resection of the superior posterior aspect of the calcaneus. Electronically Signed: Rodrigo Ha MD at 12:50 EDT , Service support ,
--- NOTE | 2021-06-02 11:44 | OP.PCM_ITS ---
Report of Operation Date of Procedure: 06/02/21 Pre-Operative Diagnosis: Achilles tendinosis with retrocalcaneal spur, left Ganglion cyst left foot and ankle Post-Operative Diagnosis: Same Surgery/Procedure Performed:: 1. Achilles tendon detach/reattach, debridement, repair with resection of retrocalcaneal spur, left 2. Excision of ganglion cysts left foot/ankle Surgeon: Sam Ferguson optometry professor: Dante Type of Anesthesia: General and Local Specimen's removed: 1. Debrided achilles tendon and resected retrocalcaneal spur/Shira's deformity from left foot sent to pathology 2. Excised ganglion cysts from left foot/ankle sent to pathology Estimated Blood Loss (mL): 10mL Description of Procedure: INDICATIONS: This is a 50 year-old gentleman who has left heel pain to the Achilles tendon, retrocalcaneal spur/Shira's Deformity, as well as to the lateral ankle and hindfoot from ganglion cysts. He continues to have symptoms despite nonsurgical care and he would like to proceed with surgical intervention. He has been medically optimized for surgery by his primary care physician, Dr. Tarango. The procedures were reviewed with him, as well as the goals, estimated recovery and the benefits vs risks with him. All the consent forms were reviewed with him and he freely signed them. OPERATIVE PROCEDURE: The patient was brought back into the operating room and was in the supine position. The patient received general anesthesia per the anesthesiologist. After anesthesia was obtained, he was carefully placed in the prone position and a well-padded pneumatic tourniquet was applied around his left thigh. A time- out was performed and the patient was properly identified and surgical plan was confirmed. The patient did receive prophylactic antibiotics for this procedure, which was cefazolin 2 g of intravenous Ancef. The left lower extremity was scrubbed, prepped and draped in the usual aseptic fashion. Further attention was directed to the left heel. There was noted to be a retrocalcaneal spur and Shira's deformity palpable underneath the skin on the posterior aspect of the calcaneus. The left foot was elevated and also exsanguinated with an Esmarch bandage and the left thigh pneumatic tourniquet was inflated to 300mmHg. Using #15 scalpel blade, a linear longitudinal skin i ncision was made overlying the posterior aspect of the distal Achilles tendon and the posterior calcaneus. Careful dissection was completed down to the insertion points of the Achilles tendon, and the paratenon was incised with a #15 scalpel blade, and was carefully reflected to visualize the Achilles tendon. The Achilles tendon was visualized, it was noted to be overall healthy and viable with some tendinosis, which was carefully debrided away using a #15 scalpel blade. Using #15 scalpel blade, a midline incision was made through the most distal aspect of the Achilles tendon and carefully reflected off of the calcaneus keeping the medial and lateral insertion points intact. The Shira deformity and the retrocalcaneal spur were visualized, in which the Shira deformity and retrocalcaneal spur were quite large. There was also a large retrocalcaneal bursa present which was debrided away and excised. The retrocalcaneal spur and Shira's deformities were excised using a powered sagittal saw, and were passed from the surgical field and sent to pathology along with the debrided Achilles tendon and bursa for further analysis. At this time, the site was flushed out with copious amounts of normal saline solution. The Achilles tendon was carefully anchored back down to it's insertion point on the posterior calcaneus using one Arthrex SpeedBridge. This was applied following the recommended manufactors technique guide. The Achilles tendon was also reinforced using 3-0 Vicryl. At this time, the Achilles tendon was intact and it was well secured to the posterior aspect of the calcaneus at its insertion. There was good plantarflexion of the foot and ankle with calf squeeze. There was a negative Kamara test meaning the Achilles tendon was intact with working well. The proper resection of the heel spurs and Shira's deformity was confirmed using intraoperative fluoroscopy. The site was flushed out with copious amounts of normal saline solution. The surgical site was st able. The paratenon was carefully reapproximated using 3-0 Vicryl. The subcutaneous tissue layer was carefully reapproximated using 3-0 Vicryl and the skin was carefully reapproximated using 4-0 Monocryl. Cavilon was gently painted along the sutured skin incision site and Steri-Strips were placed across the sutured skin incision. Next, attention was directed to the lateral ankle and hindfoot at the level of the peroneal tendons. A skin incision was made over the peroneal tendons of the lateral ankle. Careful dissection was completed down to the superior peroneal tendon retinaculum which was incised. The peroneal tendon sheath was incised and there was noted to be a ganglion cyst coming off of the peroneal tendons at the level of the lateral posterior ankle near the posterior talofibular ligament. There was also noted to be a very low lying muscle belly of the peroneus brevis tendon which was excised and sent as specimen to pathology. Otherwise the peroneal tendons were noted to be intact, viable, and healthy with no tears with visual abnormalities present at this level. The cyst was visualized and it was soft, yellow and filled with jelly like fluid consistent with a ganglion cyst. The sac and stalk of the cyst were carefully dissected out and freed up using a dissecting scissors. The sac of the cyst and the stalk were excised and sent with the excised low lying muscle to pathology. There was no necrosis, or purulence. The site was flushed out with copious amounts of normal saline solution. The peroneal tendon sheath was reapproximated using 3-0 Vicryl, the superior peroneal retinaculum was reapproximated using 2-0 Prolene and 0 Vicryl. The subcutaneous tissue layer was carefully reapproximated using 3-0 Vicryl and the skin was carefully reapproximated using 4-0 Monocryl. Cavilon was painted along this skin incision edges, and Steri-Strips were applied across the sutured skin incision. Next, attention was directed to the lateral hindfoot at the level of the peroneal tendons. A skin incision was made over the peroneal tendons of the lateral hindfoot. Careful dissection was completed down to the inferior peroneal tendon retinaculum which was incised. The peroneal tendon sheath was incised and there was noted to be a ganglion cyst coming off of the peroneal tendons at the level of the subtalar joint in the sinus tarsi. Otherwise the peroneal tendons were noted to be intact, viable, and healthy with no tears with visual abnormalities present at this level. The cyst was visualized and it was soft, yellow and filled with jelly like fluid consistent with a ganglion cyst. The sac and stalk of the cyst were carefully dissected out and freed up using a dissecting scissors. The sac of the cyst and the stalk were excised and sent to pathology. There was no necrosis, or purulence. The site was flushed out with copious amounts of normal saline solution. The peroneal tendon sheath was reapproximated using 3-0 Vicryl, the inferior peroneal retinaculum was reapproximated using 2-0 Prolene and 0 Vicryl. The subcutaneous tissue layer was carefully reapproximated using 3-0 Vicryl and the skin was carefully reapproximated using 4-0 Monocryl. Cavilon was painted along this skin incision edges, and Steri-Strips were applied across the sutured skin incision. A total of 30mL of 0.5% bupivacaine plain was given as a regional infiltrative nerve block around the posterior heel and Achilles tendon, as well as the lateral ankle and hindfoot surgical sites. The pneumatic tourniquet was deflated and there was immediate return of warmth and perfusion to the right foot with normal temperature gradient (total tourniquet time was 116 minutes). Capillary fill time was less than three seconds. A dressing was applied, which consisted of Betadine-soaked adaptic, 4 x 4 gauze, Kerlix, and Higinio bandages. The patient was transported from the operating room to the recovery room with vital signs stable and in good condition. Postoperative orders were placed. Postoperative instructions were reviewed with him as well as his who is present with him today. He was given a prescription for hydrocodone/acetaminophen 5mg/325 mg for pain management, 1-2 tabs q 6 hours as needed for pain and recommended to take two baby aspirins once a day starting tomorrow to help prevent a blood clot. He will follow up with me next week or sooner if needed. Grafts/Implants Used: 1 x Arthrex Speedbridge Complications None
[2021-06-02 11:50] VITALS: BP 119/60; BP 141/94; PULSE 86; RESP 18; TEMP 35.8; O2SAT 100
[2021-06-02 12:00] VITALS: BP 119/60; BP 121/91; PULSE 77; RESP 18; O2SAT 100
[2021-06-02 12:15] VITALS: BP 119/60; BP 130/83; PULSE 79; RESP 18; O2SAT 96
[2021-06-02 12:20] LABS: Bedside Glucose 155 mg/dL (70-110)
[2021-06-02 12:30] VITALS: BP 119/60; BP 130/98; PULSE 76; RESP 18; TEMP 35.8; O2SAT 98
[2021-06-02 12:50] VITALS: BP 119/60
== END 2021-06-02 13:31 | disposition home or self-care (01) ==
LOC: SDC 07:28 → AC 07:29
PROVIDERS: PCP Internal Medicine; Referring Provider Podiatrist; Visit Provider Podiatrist
PROC: (CPT 28899; principal; 2021-06-02 08:45)
DX: M76.62 Achilles tendinitis, left leg (principal); M67.472 Ganglion, left ankle and foot; M77.32 Calcaneal spur, left foot; I10 Essential (primary) hypertension; E11.9 Type 2 diabetes mellitus without complications; F41.9 Anxiety disorder, unspecified; I25.10 Atherosclerotic heart disease of native coronary artery without angina pectoris; E78.5 Hyperlipidemia, unspecified; M48.00 Spinal stenosis, site unspecified; G47.30 Sleep apnea, unspecified; Z86.16 Personal history of COVID-19; Z79.84 Long term (current) use of oral hypoglycemic drugs; Z79.82 Long term (current) use of aspirin; Z79.899 Other long term (current) drug therapy
CPT/HCPCS: 27630; 27654; 28119; 73610; 73650; 76000; 82962; 88304; 88305; 88311; J7120; J2405

== ENCOUNTER → 2021-06-20 15:38 | Outpatient (CLI) | payer OTHER, SELFPAY ==
[2021-06-02 08:29] VITALS: BMI 35.6
[2021-06-20 16:20] LABS: D-Dimer Quantitative (DVT/PE) 1.02 FEU/ug/m (0.27-0.49)
== END ==
PROVIDERS: PCP Internal Medicine; Referring Provider Internal Medicine Pulmonary Disease; Visit Provider Internal Medicine Pulmonary Disease
DX: R60.9 Edema, unspecified (principal)
CPT/HCPCS: 85379

== ENCOUNTER → 2021-06-21 14:48 | Outpatient (CLI) | payer OTHER, SELFPAY ==
[2021-06-02 08:29] VITALS: BMI 35.6
--- NOTE | 2021-06-21 14:52 | VDLE_ITS ---
Reason For Study: EDEMA/ ELEVATED D-DIMER RIGHT LEFT CFV is compressible, spontaneous, phasic, GSV is normal. competent and demonstrates normal CFV is compressible, spontaneous, phasic, augmentation. competent, and demonstrates normal Procedure augmentation. Exam performed in department. FV is compressible, spontaneous, phasic, This is a venous duplex using B-mode, color competent and demonstrates normal flow and spectral Doppler. augmentation. A preliminary report was called and/or faxed POP V is compressible, spontaneous, phasic, to DR COHEN. competent and demonstrates normal augmentation. T/P Trunk is compressible. PTV is compressible. LT PerV is compressible. VL/Venous Duplex US, Unilateral Interpretation Summary Deep veins of the left lower extremity are patent and compressible segmentally. There is no evidence of left lower extremity deep vein thrombosis. Valvular competence appears intac t within the proximal deep venous system on the left . The left great saphenous vein appears patent a nd compressible segmentally. Ordering Physician: Tayo Cohen Referring Physician: PATRICIA MILLS Performed By: Omaira Cesar, RUPINDERCS, RVT
== END ==
PROVIDERS: PCP Internal Medicine; Referring Provider Internal Medicine Pulmonary Disease; Visit Provider Internal Medicine Pulmonary Disease
DX: R60.0 Localized edema (principal); R79.89 Other specified abnormal findings of blood chemistry
CPT/HCPCS: 93971

== ENCOUNTER 2021-08-02 14:26 | Outpatient (RCR) | payer OTHER, SELFPAY ==
--- NOTE | 2021-08-02 16:02 | HP.PTEVAL_ITS ---
Patient's Visit Information XAVIER MARC is a 50 year old M referred to Physical Therapy by Dr. Sam Ferguson, DPM with a diagnosis of S/P HUNGLANDS RESECTION/ACILLES DEBRIDE /REPAIR AND EXCION OF CYST LEFT. Date of Evaluation: 08/02/21 Physical Therapist: Sumit Barnard, PT, Cert MDT, OCS - Visit Plan Frequency: 2x /Week Duration: 4 Weeks Plan: PT INTERVETIONS ROM -AROM/PROM ANKLE , STRETCHING CALF,STRENGTHENING EX'S ANKLE STABILIZERS,STICK TO CALF,AND PROPRIOCEPTION , - Subjective This 50 y/o male presents to physical therapy with s/p Shira resection /Achilles debride/repair and excision of ganglion on 06/02/[address] Ferguson at [facility] at outpatient. Patient did have MRI prior to surgery.Patient was NWB LLE with fww and knee walker for 4weeks ,boot 2weeks ,3weeks has been using shoes with WBAT. Patient has edema in foot . Pain is better in Achilles. Denies paresthesia/tingling. Difficulty with extended walking ,stairs ,squatting and kneeling . Sleeping okay at night .Symptoms aggravating with longer walking and standing. Patient had same surgery on right ankle . Patient condition affects QOL and ADL's /job demands. Has orthotics. SOCAIL: . HOBBIES: golfed ,boweling. VOCATION: [employer] - Pain Left Ankle Pain Intensity (Out of 10): 3 Pain Intensity Range: 10 - Objective POSTURE: frontal plane Mechanics foot pes planus, calcaneal valgus. GAIT: ambulates with decrease stance stance time heel strike to push off left ankle antalgic gait. NEURO: denies paresthesia/tingling. EDEMA: trimalleolar 68.5 cm, met heads 25.6 cm. AROM: dorsiflexion 20 degrees from 0, plantarflexion ,eversion 5 degrees, inversion 5 degrees. MMT: ankle anteriortibials 4- /5,peroneous 3+/5 posteriortibials ,peroneu 3+/5, GS 3/5. PROPRIOCEPTION: poor. STAIRS : ONE STEP AT TIME WITH RAIL - Goals Goal 1:: I with HEP Goal Time Frame: 4-6 Weeks Goal 2:: Normalize gait pattern Goal Time Frame: 4-6 Weeks Goal 3:: Patient to increase AROM ankle by 5-10 degrees or to improve function with gait. Goal Time Frame: 4-6 Weeks Goal 4:: Patient to decrease strength ankle 4/5 except G-S 4-/5 to improve quality of gait Goal Time Frame: 4-6 Weeks Goal 5:: Reduce edema ankle foot to improve function with ROM Goal Time Frame: 4-6 Weeks Goal 6:: Patient to improve LFES by 5 -10 points or > to improve QOL and function - Rehabilitation Potential Physical Therapy Diagnosis: This patient under s/p surgery of ankle with above diagnosis with impairments with decrease ROM ankle ,edema, strength ankle stabilizers .poor proprioception impairs gait and function thus benefit from skilled PT Rehabilitation Potential: Good - Anticipated Interventions Patient/Client Instruction: Educate patient on: Condition, Plan of Care For the Purpose of:: To decrease pain, To increase ROM, To improve muscle performance and motor function, To increase tolerance to activity/condition/position, To improve performance and independence with ADL's, To improve ability of physical actions for home/community/work/leisure, To improve gait and locomotor functions, To improve health of tissue, To decrease soft tissue restriction, To increase flexibility/ROM, To reduce risk of recurrence Therapeutic Exercise to Include: Strength training, Balance training, Flexibilty training, Gait and locomotor training, Passive ROM, Active ROM Comment: ANKLE For the Purpose of:: To decrease pain, To increase ROM, To improve muscle performance and motor function, To increase tolerance to activity/condition/position, To improve ability of physical actions for home/community/work/leisure, To improve health of tissue, To decrease soft tissue restriction, To increase flexibility/ROM, To reduce risk of recurrence Thank you for the opportunity to evaluate your patient. For Medicare and Medicare HMO plans, please review the plan of care and approve it. It will need to be FAXED BACK to us at [phone] for Medicare purposes. For Medicare only, by signing this I certify the plan of care. Please let me know if there are questions or concerns regarding this plan of care. Physician Signature: Date:
--- NOTE | 2021-12-15 09:12 | HP.PT.NRP ---
XAVIER MARC was seen in my office for initial evaluation on 08/02/21. The following Plan of Care was established for this patient: Initial Frequency: 2x /Week Initial Duration: 4 Weeks Patient/Client Instruction: Educate patient on: Condition, Plan of Care For the Purpose of:: To decrease pain, To increase ROM, To improve muscle performance and motor function, To increase tolerance to activity/condition/position, To improve performance and independence with ADL's, To improve ability of physical actions for home/community/work/leisure, To improve gait and locomotor functions, To improve health of tissue, To decrease soft tissue restriction, To increase flexibility/ROM, To reduce risk of recurrence Therapeutic Exercise to Include: Strength training, Balance training, Flexibilty training, Gait and locomotor training, Passive ROM, Active ROM For the Purpose of:: To decrease pain, To increase ROM, To improve muscle performance and motor function, To increase tolerance to activity/condition/position, To improve ability of physical actions for home/community/work/leisure, To improve health of tissue, To decrease soft tissue restriction, To increase flexibility/ROM, To reduce risk of recurrence This patient was last seen in our office . Pertinent comments regarding their Physical therapy will appear below: Patient seen for PT evaluation for HEP At this point I will be discontinuing this patient from physical therapy. I would be happy to see this patient again in the future if found appropriate by the physician. Thank you! Sumit Barnard, PT, Cert MDT, OCS Balance/Gait/Functional tests - Balance/Special Test Scores Lower Extremity Functional Score: 17
== END 2021-08-02 19:00 | disposition home or self-care (01) ==
LOC: PT 14:26
PROVIDERS: PCP Internal Medicine; Referring Provider Podiatrist; Visit Provider Podiatrist
DX: Z98.890 Other specified postprocedural states (principal)
CPT/HCPCS: 97110; 97162

== ENCOUNTER → 2021-11-06 06:51 | Outpatient (CLI) | payer OTHER, SELFPAY ==
[2021-11-06 07:13] LABS: Absolute Lymphocyte Count 2.29 X10^3/uL (0.83-4.51); Absolute Neutrophil Count 3.7 X10^3/uL (2.0-7.7); Basophil# 0.08 X10^3/uL; Basophil% 1.2 % (0-1); Eosinophil# 0.12 X10^3/uL; Eosinophils% 1.8 % (0-5); Hematocrit 44.6 % (40-54); Hemoglobin 15.5 g/dL (13.0-16.5); Lymphocyte # 2.29 X10^3/ul (0.83-4.51); Lymphocyte % 33.8 % (19-41); Mean Corp Hgb Conc 34.8 g/dL (32-36); Mean Corpuscular Hgb 30.9 pg (27.0-32.0); Mean Platelet Vol. 9.5 fl (6.2-12.0); Monocyte# 0.53 X10^3/uL; Monocyte% 7.8 % (0-10); NRBC Flagged by Analyzer 0 % (0-5); Neutrophil # 3.73 X10^3/uL (2.7-7.7); Neutrophil % 55.1 % (47-70); Platelet Count 272 K/mm3 (150-450); RBC Distribution Width CV 12.4 % (11.6-14.6); RBC Distribution Width SD 40.5 fl (35.1-43.9); Red Blood Count 5.01 M/mm3 (4.6-6.2); White Blood Count 6.8 K/mm3 (4.4-11.0)
[2021-11-06 08:00] LABS: AST(SGOT) 17 U/L (15-37); Alanine Aminotransfer ALT/SGPT 23 U/L (16-61); Albumin, Serum 4.2 g/dL (3.2-5.0); Alkaline Phosphatase 69 U/L (45-117); Anion Gap 9 (5-15); BUN 24 mg/dL (7-18); BUN/Creat Ratio 20.7 RATIO (10-20); Calcium,Total 9.3 mg/dL (8.5-10.1); Chloride 102 mmol/L (98-107); Creatinine, Serum 1.16 mg/dL (0.70-1.30); EST Glomerular Filtration Rate 70 mL/min (>60); Est Glom Filt Rate - Afr Amer 85 mL/min (>60); Ferritin 98 ng/mL (26-388); Globulin 4.2 g/dL (2.2-4.2); Glucose 214 mg/dL (74-106); LDH 166 U/L (87-241); Potassium 3.6 mmol/L (3.5-5.1); Protein, Total 8.4 g/dL (6.4-8.2); Sodium Level 139 mmol/L (136-145)
[2021-11-07 12:43] LABS: AFP, Tumor Marker 1.9 ng/mL (0.0-8.3)
== END ==
PROVIDERS: PCP Internal Medicine; Referring Provider Internal Medicine Medical Oncology; Visit Provider Internal Medicine Medical Oncology
DX: E83.110 Hereditary hemochromatosis (principal)
CPT/HCPCS: 36415; 80053; 82105; 82728; 83615; 85025

== ENCOUNTER 2022-02-05 06:47 | Outpatient (CLI) | payer OTHER, SELFPAY ==
[2022-02-05 08:10] LABS: Absolute Lymphocyte Count 2.25 X10^3/uL (0.83-4.51); Absolute Neutrophil Count 3.1 X10^3/uL (2.0-7.7); Basophil# 0.06 X10^3/uL; Eosinophil# 0.15 X10^3/uL; Eosinophils% 2.4 % (0-5); Hematocrit 45.8 % (40-54); Hemoglobin 15.9 g/dL (13.0-16.5); Lymphocyte # 2.25 X10^3/ul (0.83-4.51); Lymphocyte % 36.2 % (19-41); Mean Corp Hgb Conc 34.7 g/dL (32-36); Mean Corpuscular Hgb 31.9 pg (27.0-32.0); Mean Corpuscular Volume 91.8 fL (80-94); Mean Platelet Vol. 10.2 fl (6.2-12.0); Monocyte# 0.63 X10^3/uL; Monocyte% 10.1 % (0-10); NRBC Flagged by Analyzer 0 % (0-5); Neutrophil # 3.09 X10^3/uL (2.7-7.7); Neutrophil % 49.8 % (47-70); Platelet Count 279 K/mm3 (150-450); RBC Distribution Width CV 11.9 % (11.6-14.6); RBC Distribution Width SD 40.1 fl (35.1-43.9); Red Blood Count 4.99 M/mm3 (4.6-6.2); White Blood Count 6.2 K/mm3 (4.4-11.0)
[2022-02-05 08:49] LABS: AST(SGOT) 16 U/L (15-37); Alanine Aminotransfer ALT/SGPT 25 U/L (16-61); Albumin, Serum 3.9 g/dL (3.2-5.0); Alkaline Phosphatase 61 U/L (45-117); Anion Gap 6 (5-15); BUN 19 mg/dL (7-18); BUN/Creat Ratio 17.4 RATIO (10-20); Chloride 102 mmol/L (98-107); Creatinine, Serum 1.09 mg/dL (0.70-1.30); EST Glomerular Filtration Rate 75 mL/min (>60); Est Glom Filt Rate - Afr Amer 91 mL/min (>60); Ferritin 99 ng/mL (26-388); Globulin 3.9 g/dL (2.2-4.2); Glucose 192 mg/dL (74-106); LDH 163 U/L (87-241); Potassium 3.3 mmol/L (3.5-5.1); Protein, Total 7.8 g/dL (6.4-8.2); Sodium Level 139 mmol/L (136-145)
== END 2022-02-05 23:59 | disposition home or self-care (01) ==
LOC: LAB 06:49
PROVIDERS: PCP Internal Medicine; Referring Provider Internal Medicine Medical Oncology; Visit Provider Internal Medicine Medical Oncology
DX: E83.110 Hereditary hemochromatosis (principal)
CPT/HCPCS: 36415; 80053; 82728; 83615; 85025

== ENCOUNTER 2022-05-01 06:51 | Outpatient (CLI) | payer OTHER, SELFPAY ==
[2022-05-01 08:09] LABS: Absolute Lymphocyte Count 2.81 X10^3/uL (0.83-4.51); Absolute Neutrophil Count 4.2 X10^3/uL (2.0-7.7); Basophil# 0.05 X10^3/uL; Basophil% 0.6 % (0-1); Eosinophil# 0.15 X10^3/uL; Eosinophils% 1.9 % (0-5); Hematocrit 46.7 % (40-54); Hemoglobin 15.9 g/dL (13.0-16.5); Lymphocyte # 2.81 X10^3/ul (0.83-4.51); Lymphocyte % 35.7 % (19-41); Mean Corpuscular Hgb 31.2 pg (27.0-32.0); Mean Corpuscular Volume 91.7 fL (80-94); Mean Platelet Vol. 9.4 fl (6.2-12.0); Monocyte# 0.61 X10^3/uL; Monocyte% 7.8 % (0-10); NRBC Flagged by Analyzer 0 % (0-5); Neutrophil # 4.23 X10^3/uL (2.7-7.7); Neutrophil % 53.7 % (47-70); Platelet Count 278 K/mm3 (150-450); RBC Distribution Width CV 12.3 % (11.6-14.6); RBC Distribution Width SD 41.7 fl (35.1-43.9); Red Blood Count 5.09 M/mm3 (4.6-6.2); White Blood Count 7.9 K/mm3 (4.4-11.0)
[2022-05-01 08:59] LABS: ALB/GLOB Ratio 1.1 RATIO (0.9-2.4); AST(SGOT) 15 U/L (15-37); Alanine Aminotransfer ALT/SGPT 26 U/L (16-61); Albumin, Serum 4.1 g/dL (3.2-5.0); Alkaline Phosphatase 69 U/L (45-117); Anion Gap 6 (5-15); BUN 19 mg/dL (7-18); BUN/Creat Ratio 16.1 RATIO (10-20); Calcium,Total 9.1 mg/dL (8.5-10.1); Chloride 101 mmol/L (98-107); Creatinine, Serum 1.18 mg/dL (0.70-1.30); EST Glomerular Filtration Rate 69 mL/min (>60); Est Glom Filt Rate - Afr Amer 83 mL/min (>60); Ferritin 115 ng/mL (26-388); Globulin 3.9 g/dL (2.2-4.2); Glucose 135 mg/dL (74-106); Iron 153 ug/dL (65-175); Iron Binding Capacity,Total 327 ug/dL (250-450); LDH 141 U/L (87-241); PERCENT IRON SATURATION 46.8 % (15.0-55.0); Potassium 3.4 mmol/L (3.5-5.1); Sodium Level 136 mmol/L (136-145)
[2022-05-02 08:24] LABS: AFP, Tumor Marker 1.5 ng/mL (0.0-8.4)
== END 2022-05-01 23:59 | disposition home or self-care (01) ==
LOC: LAB 06:52
PROVIDERS: PCP Internal Medicine; Referring Provider Internal Medicine Medical Oncology; Visit Provider Internal Medicine Medical Oncology
DX: E83.110 Hereditary hemochromatosis (principal)
CPT/HCPCS: 36415; 80053; 82105; 82728; 83540; 83550; 83615; 85025

== ENCOUNTER → 2022-09-03 | Outpatient (CLI) | payer OTHER, SELFPAY ==
[2022-09-03 07:22] LABS: Absolute Lymphocyte Count 2.16 X10^3/uL (0.83-4.51); Absolute Neutrophil Count 3.8 X10^3/uL (2.0-7.7); Basophil# 0.05 X10^3/uL; Basophil% 0.8 % (0-1); Eosinophil# 0.12 X10^3/uL; Eosinophils% 1.8 % (0-5); Hematocrit 42.4 % (40-54); Hemoglobin 15.4 g/dL (13.0-16.5); Lymphocyte # 2.16 X10^3/ul (0.83-4.51); Lymphocyte % 32.4 % (19-41); Mean Corp Hgb Conc 36.3 g/dL (32-36); Mean Corpuscular Hgb 32.8 pg (27.0-32.0); Mean Corpuscular Volume 90.2 fL (80-94); Mean Platelet Vol. 9.4 fl (6.2-12.0); Monocyte# 0.56 X10^3/uL; Monocyte% 8.4 % (0-10); NRBC Flagged by Analyzer 0 % (0-5); Neutrophil # 3.75 X10^3/uL (2.7-7.7); Neutrophil % 56.3 % (47-70); Platelet Count 243 K/mm3 (150-450); RBC Distribution Width SD 39.5 fl (35.1-43.9); White Blood Count 6.7 K/mm3 (4.4-11.0)
[2022-09-03 07:37] LABS: Hemoglobin A1c 7.7 % (3.8-5.6)
[2022-09-03 08:02] LABS: AST(SGOT) 19 U/L (15-37); Alanine Aminotransfer ALT/SGPT 33 U/L (16-61); Alkaline Phosphatase 62 U/L (45-117); Anion Gap 10 (5-15); BUN 15 mg/dL (7-18); BUN/Creat Ratio 14.7 RATIO (10-20); Calcium,Total 9.2 mg/dL (8.5-10.1); Chloride 104 mmol/L (98-107); Cholesterol 156 mg/dL (200); Creatinine, Serum 1.02 mg/dL (0.70-1.30); EST Glomerular Filtration Rate 81 mL/min (>60); Est Glom Filt Rate - Afr Amer 98 mL/min (>60); Ferritin 166 ng/mL (26-388); Free T3 2.4 pg/mL (2.18-3.98); Glucose 178 mg/dL (74-106); High Density Lipoprotein 50 mg/dL; Iron 133 ug/dL (65-175); Iron Binding Capacity,Total 304 ug/dL (250-450); LDH 163 U/L (87-241); PERCENT IRON SATURATION 43.8 % (15.0-55.0); Potassium 3.4 mmol/L (3.5-5.1); Sodium Level 140 mmol/L (136-145); T4 Free Direct 1.21 ng/dL (0.76-1.46); Thyroid Stim Hormone (TSH) 3.27 uIU/mL (0.358-3.74); Triglycerides 172 mg/dL; Very Low Density Lipoprotein 34 mg/dL (5-40)
[2022-09-03 08:48] LABS: Vitamin D,25 Hydroxy 42.6 ng/mL
[2022-09-08 10:32] LABS: AFP, Tumor Marker 1.9 ng/mL (0.0-8.4)
== END | disposition home or self-care (01) ==
LOC: LAB 06:58
PROVIDERS: Internal Medicine Medical Oncology; PCP Internal Medicine; Referring Provider Internal Medicine; Visit Provider Internal Medicine
DX: E55.9 Vitamin D deficiency, unspecified (principal); E11.9 Type 2 diabetes mellitus without complications; E83.119 Hemochromatosis, unspecified; E78.2 Mixed hyperlipidemia; E03.9 Hypothyroidism, unspecified
CPT/HCPCS: 36415; 80053; 80061; 82105; 82306; 82728; 83036; 83540; 83550; 83615; 84439; 84443; 84481; 85025

== ENCOUNTER → 2022-12-10 | Outpatient (CLI) | payer OTHER, SELFPAY ==
--- NOTE | 2022-12-10 07:30 | US_ITS ---
STUDY: ABDOMINAL ULTRASOUND REASON FOR EXAM: Male, 52 years old. HCC screening; hemochromatosis TECHNIQUE: Transabdominal ultrasound was performed with real-time and static becerril scale imaging. TECHNICAL QUALITY: Adequate. COMPARISON: Comparison is made with prior study 09/15/2018. FINDINGS: Liver: The liver measures 16.8 cm. There is increased echogenicity consistent with fatty infiltration. Focal fatty sparing is seen in the gallbladder fossa. The bile ducts are within normal limits. There is hepatic color flow. The direction of portal flow is hepatopetal. There is no demonstrated mass lesion. Gallbladder: Normal distended gallbladder. The gallbladder wall measures 3 mm. There is a negative sonographic Taylor''s sign. There is no pericholecystic fluid. There are no gallstones. Common Bile Duct (C.B.D.): The common bile duct measures 4 mm. Pancreas: There is nonvisualization of the pancreas due to overlying bowel gas. Spleen: Normal size of the spleen. The spleen measures 11.6 cm x 5.4 cm x 6 cm. Right Kidney: Normal size of the right kidney. The right kidney measures 12.1 cm x 7 cm x 6.2 cm. Normal renal cortex. The right cortex measures 1.9 cm. There is no demonstrated renal mass or cyst. There is no right hydronephrosis. Left Kidney: Normal size of the left kidney. The left kidney measures 11.3 cm x 6.6 cm x 5.5 cm. Normal renal cortex. The left cortex measures 1.6 cm. There is no demonstrated renal mass or cyst. There is no left hydronephrosis. There is no ascites. US/Abdomen Complete IMPRESSION: Fatty infiltration of the liver. Electronically Signed: Rodrigo Ha MD at 15:17 EST ,
[2022-12-10 09:13] LABS: Absolute Neutrophil Count 3.4 X10^3/uL (2.0-7.7); Basophil# 0.06 X10^3/uL; Eosinophil# 0.12 X10^3/uL; Eosinophils% 2.1 % (0-5); Hematocrit 44.6 % (40-54); Hemoglobin 15.8 g/dL (13.0-16.5); Lymphocyte % 29.5 % (19-41); Mean Corp Hgb Conc 35.4 g/dL (32-36); Mean Corpuscular Hgb 32.4 pg (27.0-32.0); Mean Corpuscular Volume 91.4 fL (80-94); Mean Platelet Vol. 9.9 fl (6.2-12.0); Monocyte# 0.49 X10^3/uL; Monocyte% 8.5 % (0-10); NRBC Flagged by Analyzer 0 % (0-5); Neutrophil # 3.37 X10^3/uL (2.7-7.7); Neutrophil % 58.6 % (47-70); Platelet Count 251 K/mm3 (150-450); RBC Distribution Width SD 40.4 fl (35.1-43.9); Red Blood Count 4.88 M/mm3 (4.6-6.2); White Blood Count 5.8 K/mm3 (4.4-11.0)
[2022-12-10 09:52] LABS: ALB/GLOB Ratio 1.1 RATIO (0.9-2.4); AST(SGOT) 17 U/L (15-37); Alanine Aminotransfer ALT/SGPT 32 U/L (16-61); Albumin, Serum 4.1 g/dL (3.2-5.0); Alkaline Phosphatase 62 U/L (45-117); Anion Gap 6 (5-15); BUN 15 mg/dL (7-18); BUN/Creat Ratio 14.2 RATIO (10-20); Calcium,Total 9.3 mg/dL (8.5-10.1); Chloride 104 mmol/L (98-107); Creatinine, Serum 1.06 mg/dL (0.70-1.30); EST Glomerular Filtration Rate 77 mL/min (>60); Est Glom Filt Rate - Afr Amer 94 mL/min (>60); Ferritin 148 ng/mL (26-388); Globulin 3.8 g/dL (2.2-4.2); Glucose 182 mg/dL (74-106); Potassium 3.5 mmol/L (3.5-5.1); Protein, Total 7.9 g/dL (6.4-8.2); Sodium Level 140 mmol/L (136-145)
[2022-12-10 16:12] LABS: Xtra Tube EP Lab EXTRA TUBE
[2022-12-13 21:43] LABS: AFP, Tumor Marker < 1.8 ng/mL (0.0-8.4)
== END | disposition home or self-care (01) ==
PROVIDERS: PCP Internal Medicine; Referring Provider Nurse Practitioner Family; Visit Provider Nurse Practitioner Family
DX: E83.110 Hereditary hemochromatosis (principal); K76.0 Fatty (change of) liver, not elsewhere classified
CPT/HCPCS: 36415; 76700; 80053; 82105; 82728; 85025

== ENCOUNTER → 2023-04-03 | Outpatient (CLI) | payer OTHER, SELFPAY ==
--- NOTE | 2023-04-03 07:56 | US_ITS ---
STUDY: ABDOMINAL ULTRASOUND - RIGHT UPPER QUADRANT REASON FOR VISIT: Male, 52 years old LIVER ELASTOGRAPHY . History of hemochromatosis. TECHNIQUE: Ultrasound evaluation of the right upper quadrant was performed with real-time and static becerril-scale imaging. TECHNICAL QUALITY: Adequate. COMPARISON: Comparison is made with prior study dated December 10, 2022. FINDINGS: Liver: The liver measures 14.5 cm. There is increased echogenicity consistent with fatty infiltration. Focal fatty sparing is seen in the region of the gallbladder fossa. The bile ducts are within normal limits. There is hepatic color flow. The direction of portal flow is hepatopetal. There is no demonstrated mass lesion. Gallbladder: Normal distended gallbladder. The gallbladder wall measures 2 mm. There is a negative sonographic Taylor''s sign. There is no pericholecystic fluid. There are no gallstones. Common Bile Duct (C.B.D.): The common bile duct measures 3 mm. Pancreas: Normal size of the head, body and tail of the pancreas. There is normal echogenicity of the pancreas. There is no demonstrated pancreatic mass or cyst. Right Kidney: Normal size of the right kidney. The right kidney measures 12.5 cm x 5.7 cm x 6.9 cm. Normal renal cortex. The right cortex measures 1.6 cm. There is no demonstrated renal mass or cyst. There is a 9 mm x 9 mm x 6 mm nonobstructive right intrarenal calculus. US/Abdomen Limited IMPRESSION: Fatty infiltration of the liver with focal fatty sparing in the region of the gallbladder fossa. Electronically Signed: Rodrigo Ha MD at 13:50 EDT ,
--- NOTE | 2023-04-03 07:56 | US_ITS ---
STUDY: ABDOMINAL ULTRASOUND - ELASTOGRAPHY REASON FOR VISIT: Male, 52 years old. Hemochromatosis. TECHNIQUE: Liver stiffness measurements were obtained on a 3ROAM RS 85 ultrasound machine using a CA 1-7 probe following the SRU guidelines. 3 measurements were obtained using a 2-D-SWE method. TheIQR/M was 13% suggesting a quality data set. TECHNICAL QUALITY: Adequate. COMPARISON: Comparison is made with prior examination done earlier today. FINDINGS: Liver: Fatty infiltration of the liver. Median liver stiffness measured 5 kPa. Abdomen: There is no demonstrated mass lesion. US/Elastography Parenchyma/Organ IMPRESSION: Liver stiffness measures 5 kPa compatible with F0-F1 (Normal to mild liver fibrosis) Metavir score. Electronically Signed: Rodrigo Ha MD at 13:52 EDT ,
[2023-04-03 08:01] LABS: Absolute Lymphocyte Count 1.83 X10^3/uL (0.83-4.51); Absolute Neutrophil Count 3.6 X10^3/uL (2.0-7.7); Basophil# 0.05 X10^3/uL; Basophil% 0.8 % (0-1); Eosinophil# 0.13 X10^3/uL; Eosinophils% 2.1 % (0-5); Hematocrit 44.8 % (40-54); Hemoglobin 15.6 g/dL (13.0-16.5); Lymphocyte # 1.83 X10^3/ul (0.83-4.51); Mean Corp Hgb Conc 34.8 g/dL (32-36); Mean Corpuscular Hgb 31.8 pg (27.0-32.0); Mean Corpuscular Volume 91.2 fL (80-94); Mean Platelet Vol. 9.7 fl (6.2-12.0); Monocyte# 0.46 X10^3/uL; Monocyte% 7.5 % (0-10); NRBC Flagged by Analyzer 0 % (0-5); Neutrophil # 3.62 X10^3/uL (2.7-7.7); Neutrophil % 59.3 % (47-70); Platelet Count 220 K/mm3 (150-450); RBC Distribution Width CV 11.9 % (11.6-14.6); RBC Distribution Width SD 39.9 fl (35.1-43.9); Red Blood Count 4.91 M/mm3 (4.6-6.2); White Blood Count 6.1 K/mm3 (4.4-11.0)
[2023-04-03 08:36] LABS: ALB/GLOB Ratio 1.1 RATIO (0.9-2.4); AST(SGOT) 19 U/L (15-37); Alanine Aminotransfer ALT/SGPT 31 U/L (16-61); Alkaline Phosphatase 58 U/L (45-117); Anion Gap 8 (5-15); BUN 15 mg/dL (7-18); BUN/Creat Ratio 14.2 RATIO (10-20); Calcium,Total 9.2 mg/dL (8.5-10.1); Chloride 102 mmol/L (98-107); Creatinine, Serum 1.06 mg/dL (0.70-1.30); EST Glomerular Filtration Rate 77 mL/min (>60); Est Glom Filt Rate - Afr Amer 94 mL/min (>60); Ferritin 112 ng/mL (26-388); Globulin 3.6 g/dL (2.2-4.2); Glucose 164 mg/dL (74-106); LDH 149 U/L (87-241); Potassium 3.5 mmol/L (3.5-5.1); Protein, Total 7.6 g/dL (6.4-8.2); Sodium Level 138 mmol/L (136-145)
== END | disposition home or self-care (01) ==
PROVIDERS: PCP Internal Medicine; Referring Provider Internal Medicine Medical Oncology; Visit Provider Internal Medicine Medical Oncology
DX: E83.110 Hereditary hemochromatosis (principal)
CPT/HCPCS: 36415; 76705; 76981; 80053; 82728; 83615; 85025

== ENCOUNTER → 2023-07-08 | Outpatient (CLI) | payer OTHER, SELFPAY ==
[2023-07-08 07:33] LABS: Absolute Lymphocyte Count 2.67 X10^3/uL (0.83-4.51); Absolute Neutrophil Count 3.8 X10^3/uL (2.0-7.7); Basophil# 0.05 X10^3/uL; Basophil% 0.7 % (0-1); Eosinophil# 0.18 X10^3/uL; Eosinophils% 2.5 % (0-5); Hematocrit 46.4 % (40-54); Hemoglobin 15.9 g/dL (13.0-16.5); Lymphocyte # 2.67 X10^3/ul (0.83-4.51); Lymphocyte % 36.9 % (19-41); Mean Corp Hgb Conc 34.3 g/dL (32-36); Mean Corpuscular Hgb 31.4 pg (27.0-32.0); Mean Corpuscular Volume 91.5 fL (80-94); Mean Platelet Vol. 10.3 fl (6.2-12.0); Monocyte# 0.57 X10^3/uL; Monocyte% 7.9 % (0-10); NRBC Flagged by Analyzer 0 % (0-5); Neutrophil # 3.75 X10^3/uL (2.7-7.7); Neutrophil % 51.9 % (47-70); Platelet Count 266 K/mm3 (150-450); RBC Distribution Width CV 11.6 % (11.6-14.6); RBC Distribution Width SD 38.8 fl (35.1-43.9); Red Blood Count 5.07 M/mm3 (4.6-6.2); White Blood Count 7.2 K/mm3 (4.4-11.0)
[2023-07-08 08:09] LABS: AST(SGOT) 16 U/L (15-37); Alanine Aminotransfer ALT/SGPT 26 U/L (16-61); Alkaline Phosphatase 81 U/L (45-117); Anion Gap 5 (5-15); BUN 13 mg/dL (7-18); BUN/Creat Ratio 14.6 RATIO (10-20); Chloride 103 mmol/L (98-107); Creatinine, Serum 0.89 mg/dL (0.70-1.30); EST Glomerular Filtration Rate 95 mL/min (>60); Est Glom Filt Rate - Afr Amer 114 mL/min (>60); Ferritin 110 ng/mL (26-388); Globulin 3.9 g/dL (2.2-4.2); Glucose 98 mg/dL (74-106); Potassium 3.5 mmol/L (3.5-5.1); Protein, Total 7.9 g/dL (6.4-8.2); Sodium Level 137 mmol/L (136-145)
== END | disposition home or self-care (01) ==
LOC: LAB 06:53
PROVIDERS: PCP Internal Medicine; Referring Provider Nurse Practitioner Family; Visit Provider Nurse Practitioner Family
DX: E83.110 Hereditary hemochromatosis (principal)
CPT/HCPCS: 36415; 80053; 82728; 85025

== ENCOUNTER 2023-08-03 22:36 | Inpatient (IN) | payer OTHER, SELFPAY ==
[2023-08-03 22:44] VITALS: BP 177/78; PULSE 80; RESP 18; TEMP 36.1; O2SAT 98; BMI 35.2
--- NOTE | 2023-08-03 22:50 | EDS_ITS ---
HPI History of Present Illness Chief Complaint: Confusion Informant: patient Onset/Context/Timing Onset: Today Context: Sudden Onset Timing: Continuous Quality: Aching Location: Left frontal Worsened by: Nothing Relieved by: Nothing Narrative Narrative: Patient presents with confusion that began tonight. Patient states he was fine earlier today and laid down for a nap at approximately 5 PM. Patient states he woke up from that and feeling confused. Patient states she cannot shut off his radio. states that his speech was jumbled. Patient states he was having a hard time getting out words. Patient admits to a headache over the left frontal area. Patient states nothing makes it worse and nothing makes it better. Patient states his symptoms are starting to improve. [facility] Medical History Alcohol use Anxiety Arthritis back injections Back pain BiPAP (biphasic positive airway pressure) dependence CAD (coronary artery disease) cyst removal right shoulder Diabetes Dietary restriction Encounter for screening for COVID-19 History of hemochromatosis History of steroid therapy History of stress test Hx of echocardiogram Hyperlipidemia Hypertension Impetigo Lab test positive for detection of COVID-19 virus Non-smoker right foot surgery Spinal stenosis Thyroid disease Wears glasses Home Medications amlodipine 2.5 mg tablet 2.5 mg PO QHS 11/19/13 [History Last Taken Unknown] glimepiride 2 mg tablet 1 tab PO BID 11/19/13 [History Last Taken Unknown] levothyroxine 200 mcg tablet 200 mcg PO MOTUWETHFR 11/19/13 [History Last Taken 03/23/16 05:30 200 MCG] metformin 1,000 mg tablet 1,000 mg PO BID 11/19/13 [History Last Taken Unknown] metoprolol tartrate 50 mg tablet 50 mg PO QHS 11/19/13 [History Last Taken 03/23/16 05:30 50 MG] olmesartan 40 mg-hydrochlorothiazide 25 mg tablet 1 tab PO DAILY 11/19/13 [History Last Taken Unknown] cetirizine 10 mg tablet 10 mg PO DAILY 12/23/13 [History Last Taken Unknown] aspirin 81 mg tablet,delayed release 81 mg PO DAILY 02/28/17 [History Last Taken 05/29/21] duloxetine 60 mg capsule,delayed release 60 mg PO DAILY 02/28/17 [History Last Taken 06/02/21 07:00 60 MG] rosuvastatin 10 mg tablet 10 mg PO DAILY 02/28/17 [History Last Taken Unknown] dulaglutide 1.5 mg/0.5 mL subcutaneous pen injector 1.5 mg SQ QWEEK 08/08/17 [History Last Taken Unknown] Farxiga 20 mg PO DAILY 03/18/19 [History Last Taken Unknown] cholecalciferol (vitamin D3) 125 mcg (5,000 unit) capsule 6,000 unit PO DAILY 03/18/19 [History Last Taken Unknown] meclizine 25 mg tablet (Motion Sickness Relief (meclizine)) 25 mg PO PRN PRN Dizziness 03/18/19 [History Last Taken Unknown] Potassium Chloride [Klor-Con M20] 20 meq PO SUMOTUWETHFR 09/06/20 [History Last Taken Unknown] potassium chloride 20 mEq tablet,extended release(part/cryst) 40 meq PO SA 11/09/20 [History Last Taken Unknown] levothyroxine 100 mcg tablet 100 mcg PO SUSA 05/31/21 [History Last Taken 06/02/21 07:00 100 mcg] hydrocodone-acetaminophen 5-325mg 5mg-325mg 1 tab PO Q6H 4 days #20 tabs 06/02/21 [Rx Last Taken Unknown] dapagliflozin propanediol 10 mg tablet 10 mg PO DAILY 08/04/21 [History Last Taken Unknown] erythromycin 5 mg/gram (0.5 %) eye ointment 0.5 inch ophthalmic (eye) TID left eye conjunctivitis #1 g 10/01/21 [Rx Last Taken Unknown] Allergy/AdvReac Type Severity Reaction Status Date / Time No Known Allergies Allergy Verified 08/03/23 22:41 Family History Father Hyperlipidemia Hypertension Mother Heart disease Surgical History (Updated 08/03/23 @ 22:[address] Carlos Haq DO) H/O hernia repair History of liver biopsy History of surgical removal of ganglion cyst Hx of foot surgery Social History Smoking Status: Never smoker ROS ROS ED Constitutional Constitutional ED: Denies chills or fever(s) Eyes Eyes: Denies blurry vision or change in vision ENT ENT ED: Denies rhinorrhea or sore throat Cardiovascular Cardiovascular: Denies chest pain or palpitations Respiratory/Chest Respiratory/Chest: Denies cough or dyspnea Gastrointestinal Gastrointestinal: Denies nausea or vomiting Genitourinary Genitourinary ED: Denies dysuria or hematuria Musculoskeletal Musculoskeletal: Denies back pain or neck pain Integumentary Denies abscess or rash Neurologic Neurologic: Reports headache(s); Denies weakness Allergic/Immunologic Allergic/Immunologic ED: Denies mouth swelling or urticaria EXAM Physical Exam Const Vital Signs: 08/03/23 22:44 Temperature 97 F L Temperature Source Temporal Pulse Rate 80 Respiratory Rate 18 Blood Pressure 177/78 H Blood Pressure Mean 111 Pulse Ox 98 Oxygen Delivery Method Room Air Positive well nourished and well developed General Appearance ED: well developed HEENT Reports moist mucous membranes Neck supple and no JVD Resp normal respiratory effort and clear to auscultation bilaterally Cardio regular rate, regular rhythm and no murmurs GI normal to inspection, nondistended, normoactive bowel sounds and non-tender Palpation: soft Extremity normal to inspection General Extremety ED: Negative for edema or tenderness General Extremity: Negative for edema Neuro oriented x3, CN's II-XII intact bilaterally and no sensory deficits noted Sensorium / Orientation: alert Motor Exam: strength 5/5 throughout Psych mental status grossly normal Skin no rashes or lesions noted MDM MDM MDM Narrative Medical decision making narrative: Differential diagnosis includes encephalopathy, stroke, intracranial bleeding, hypoglycemia, hyperglycemia, electrolyte abnormality, cardiac dysrhythmia, cardiac ischemia, and TIA. CT scan of the brain will be obtained to assess for stroke and intracranial bleeding. EKG will be obtained to assess for cardiac dysrhythmia and cardiac ischemia. CBC will be obtained to assess for leukocytosis and anemia. Comprehensive metabolic profile will be obtained to assess for hepatic function, renal function, and electrolyte abnormality. Serum ammonia level will be obtained to assess for encephalopathy. Urinalysis will be obtained to assess for urinary tract infection. Lab Data Labs: Laboratory Results - last 24 hr 08/03/23 22:42 POC Glucose 170 H EKG Initial EKG: Attestation: I personally reviewed and interpreted this EKG as follows: Interpretation: Sinus Rhythm (With occasional PVC with a rate of 72) and No Acute Injury Pattern Comments: EKG was obtained. On my independent interpretation, it showed a normal sinus rhythm with occasional PVCs with a rate of 72. MA interval, QRS interval, and QTc intervals were all normal. [place] was normal. There are no acute ST or T wave changes. Prior EKG tracings: not available for review Prior: No Prior Discharge Plan Triage Chief Complaint: Confusion ED Provider: Carlos Haq Dx/Rx/DC Orders Prescriptions: No Action Farxiga 10 mg tablet 10 mg PO DAILY erythromycin 5 mg/gram (0.5 %) ointment 0.5 inch ophthalmic (eye) TID Qty: 1 0RF glimepiride 2 MG tablet 1 tab PO BID metformin 1,000 MG tablet 1,000 mg PO BID levothyroxine 200 MCG tablet 200 mcg PO MOTUWETHFR Patient Comments: takes w/50 mcg tablet to equal 250 mcg total Rx Instructions: 200mcg 5 days Sat and saturday olmesartan-hydrochlorothiazide 1 TAB tablet 1 tab PO DAILY amlodipine 2.5 MG tablet 2.5 mg PO QHS metoprolol tartrate 50 MG tablet 50 mg PO QHS cetirizine 10 MG tablet 10 mg PO DAILY aspirin 81 MG tablet,delayed release (DR/EC) 81 mg PO DAILY rosuvastatin 10 MG tablet 10 mg PO DAILY duloxetine 60 MG capsule 60 mg PO DAILY dulaglutide 1.5 MG/0.5 ML pen injector 1.5 mg SQ QWEEK Rx Instructions: sundays meclizine [Motion Sickness Relief(mecliz)] 25 MG tablet 25 mg PO PRN PRN (Reason: Dizziness) cholecalciferol (vitamin D3) 5,000 UNIT capsule 6,000 unit PO DAILY Farxiga 20 mg PO DAILY potassium chloride 20 MEQ tablet 40 meq PO SA Potassium Chloride [Klor-Con M20] 20 MEQ Tab.Er.Prt 20 meq PO SUMOTUWETHFR levothyroxine 100 mcg Tablet 100 mcg PO SUSA hydrocodone-acetaminophen 5-325 mg tablet 1 tab PO Q6H 4 Days Qty: 20 0RF Primary Care Provider: Berenice Tarango Referrals: Berenice Tarango DO [Primary Care Provider] -
--- NOTE | 2023-08-03 22:57 | CT_ITS ---
EXAM: CT HEAD WITHOUT INTRAVENOUS CONTRAST CLINICAL INDICATION: Confusion TECHNIQUE: Multiple axial images were obtained of the head without intravenous contrast. CTDIvol = ( 44.99 ) mGy, DLP = ( 880.47 ) mGycm This CT exam was performed using one or more of the following dose reduction techniques: automated exposure control, adjustment of the mA and/or kV according to patient size, and/or use of iterative reconstruction technique. COMPARISON: No relevant prior studies available. FINDINGS: BRAIN AND EXTRA-AXIAL SPACES: Unremarkable. No intra- or extra-axial hemorrhage. No evidence of acute infarct. No intracranial mass or mass effect. There is preservation of the becerril/white matter interface. Posterior fossa structures are unremarkable. Ventricles are appropriate for age. No hydrocephalus. Basal cisterns are patent. BONES/JOINTS: Unremarkable. No discrete lytic or blastic abnormalities. SINUSES: Unremarkable as visualized. Clear. MASTOID AIR CELLS: Unremarkable. Clear. ORBITS: Visualized globes, extraocular muscles, optic nerves and retrobulbar fat appear unremarkable. CT/Brain/Head without Contrast IMPRESSION: Negative head/brain CT without intravenous contrast. AIDOC was utilized to assist in identifying pertinent positive findings. Electronically Signed: Nicholas Hinds MD at 23:39 EDT ,
--- NOTE | 2023-08-03 22:58 | EKG12_ITS ---
Test Reason : CONFUSION Blood Pressure : / mmHG Vent. Rate : 072 BPM Atrial Rate : 072 BPM P-R Int : 176 ms QRS Dur : 088 ms QT Int : 416 ms P-R-T Axes : 052 -06 016 degrees QTc Int : 455 ms Sinus rhythm with occasional Premature ventricular complexes Inferior infarct , age undetermined Abnormal ECG Confirmed by MARQUISE DAMICO, TERRY ([id number]), publications editor ELENA LUND ([id number]) on 08/19/2023 2:06:36 PM Referred By: Confirmed By:KIMBERLY CAMARILLO MD
[2023-08-03 23:01] LABS: Bedside Glucose 170 mg/dL (74-106)
[2023-08-03] MEDS: 0.9% Normal Saline 1,000 ML 1000 ML IV (23:10)
[2023-08-03 23:19] LABS: Absolute Lymphocyte Count 3.01 X10^3/uL (0.83-4.51); Absolute Neutrophil Count 5.6 X10^3/uL (2.0-7.7); Basophil# 0.08 X10^3/uL; Basophil% 0.8 % (0-1); Eosinophil# 0.15 X10^3/uL; Eosinophils% 1.5 % (0-5); Hematocrit 44.9 % (40-54); Hemoglobin 15.7 g/dL (13.0-16.5); Lymphocyte # 3.01 X10^3/ul (0.83-4.51); Mean Corpuscular Volume 88.7 fL (80-94); Monocyte# 0.79 X10^3/uL; Monocyte% 8.1 % (0-10); NRBC Flagged by Analyzer 0 % (0-5); Neutrophil # 5.64 X10^3/uL (2.7-7.7); Neutrophil % 58.3 % (47-70); Platelet Count 259 K/mm3 (150-450); RBC Distribution Width CV 11.7 % (11.6-14.6); RBC Distribution Width SD 37.3 fl (35.1-43.9); Red Blood Count 5.06 M/mm3 (4.6-6.2); White Blood Count 9.7 K/mm3 (4.4-11.0)
--- NOTE | 2023-08-03 23:20 | RAD_ITS ---
EXAM: XR CHEST, 1 VIEW CLINICAL INDICATION: Chest pain TECHNIQUE: Frontal view of the chest. COMPARISON: No relevant prior studies available. FINDINGS: LUNGS AND PLEURAL SPACES: Unremarkable. No consolidation or edema. No pneumothorax. No effusion. HEART: Unremarkable. Cardiac silhouette not enlarged. MEDIASTINUM: Central airways and mediastinal contour are unremarkable. BONES/JOINTS: Degenerative changes of the acromioclavicular joints. Degenerative changes of the spine. SOFT TISSUES: Unremarkable. RAD/Chest 1 View (Portable) IMPRESSION: No acute disease. Electronically Signed: Nicholas Hinds MD at 23:52 EDT ,
[2023-08-03 23:24] VITALS: BP 168/90; PULSE 73; RESP 17; O2SAT 97
[2023-08-03 23:48] LABS: ALB/GLOB Ratio 1.1 RATIO (0.9-2.4); AST(SGOT) 16 U/L (15-37); Alanine Aminotransfer ALT/SGPT 25 U/L (16-61); Alkaline Phosphatase 90 U/L (45-117); Anion Gap 8 (5-15); BUN 13 mg/dL (7-18); BUN/Creat Ratio 12.4 RATIO (10-20); Calcium,Total 9.1 mg/dL (8.5-10.1); Chloride 104 mmol/L (98-107); Creatinine, Serum 1.05 mg/dL (0.70-1.30); EST Glomerular Filtration Rate 78 mL/min (>60); Est Glom Filt Rate - Afr Amer 94 mL/min (>60); Estimated Creatinine Clearance 85.66 ml/min; Globulin 3.7 g/dL (2.2-4.2); Glucose 163 mg/dL (74-106); Potassium 3.3 mmol/L (3.5-5.1); Protein, Total 7.7 g/dL (6.4-8.2); Sodium Level 137 mmol/L (136-145); Troponin-I HS 13 pg/mL (3.0-78.0)
[2023-08-03 23:51] LABS: Bacteria 0 SEEN /hpf (None Seen); Mucous, Urine 0 SEEN /hpf (<or=2+); Red Blood Cells-Urine 0 SEEN /hpf (0-5); Squamous Epithelial Cells - UA 0 SEEN /hpf (0-5); White Blood Cells 0 SEEN /hpf (0-5)
[2023-08-03 23:53] LABS: Color, Urine Yellow (Yellow); Glucose, Dipstick 1000 mg/dl (Normal); Ketone-Dipstick Negative (Negative); Leukocyte Esterase-Dipstick Negative /ul (Negative); Nitrite-Dipstick Negative (Negative); Occult Blood-Urine 10 /ul (Negative); Protein-Dipstick Negative (Negative); Urine Bilirubin Dipstick Negative (Negative); Urine Clarity Clear (Clear); Urine Urobilinogen Normal (Normal)
[2023-08-04] VITALS (10 sets, daily range): BP systolic 146–172; BP diastolic 82–105; PULSE 78–93; RESP 15–21; TEMP 36.8–37.5; O2SAT 96–99; BMI 35.5
--- NOTE | 2023-08-04 00:19 | CT_ITS ---
EXAM: CT ANGIOGRAPHY HEAD AND NECK WITH INTRAVENOUS CONTRAST CLINICAL INDICATION: Confusion TECHNIQUE: [place] [facility] [place]/head and neck CT angiography protocol performed with intravenous contrast. CTDIvol = ( 23.24 ) mGy, DLP = ( 968.79 ) mGycm This CT exam was performed using one or more of the following dose reduction techniques: automated exposure control, adjustment of the mA and/or kV according to patient size, and/or use of iterative reconstruction technique. MIP reconstructed images were created and reviewed. CONTRAST: IV 100mL [id number] COMPARISON: No relevant prior studies available. FINDINGS: HEAD: RIGHT ANTERIOR CEREBRAL ARTERY: Unremarkable. No significant stenosis at the visualized segments. Anterior communicating artery is present. No aneurysm. RIGHT MIDDLE CEREBRAL ARTERY: Unremarkable. No significant stenosis at the visualized segments. No aneurysm. RIGHT POSTERIOR CEREBRAL ARTERY: Unremarkable. No occlusion or significant stenosis. No aneurysm. RIGHT INTRACRANIAL INTERNAL CAROTID ARTERY: Unremarkable. No significant stenosis. No dissection or occlusion. RIGHT INTRACRANIAL VERTEBRAL ARTERY: Unremarkable. No significant stenosis. No dissection or occlusion. LEFT ANTERIOR CEREBRAL ARTERY: Unremarkable. No significant stenosis at the visualized segments. No aneurysm. LEFT MIDDLE CEREBRAL ARTERY: Unremarkable. No significant stenosis at the visualized segments. No aneurysm. LEFT POSTERIOR CEREBRAL ARTERY: Unremarkable. No occlusion or significant stenosis. No aneurysm. LEFT INTRACRANIAL INTERNAL CAROTID ARTERY: Unremarkable. No significant stenosis. No dissection or occlusion. LEFT INTRACRANIAL VERTEBRAL ARTERY: Unremarkable. No significant stenosis. No dissection or occlusion. BASILAR ARTERY: Unremarkable. No significant stenosis. No aneurysm. OTHER VASCULATURE: No vascular malformation. NECK: RIGHT COMMON CAROTID ARTERY: Unremarkable. No significant stenosis. No dissection or occlusion. RIGHT EXTRACRANIAL INTERNAL CAROTID ARTERY: Unremarkable. No significant stenosis. No dissection or occlusion. RIGHT EXTERNAL CAROTID ARTERY: Unremarkable. No occlusion. RIGHT EXTRACRANIAL VERTEBRAL ARTERY: Unremarkable. No significant stenosis. No dissection or occlusion. LEFT COMMON CAROTID ARTERY: Unremarkable. No significant stenosis. No dissection or occlusion. LEFT EXTRACRANIAL INTERNAL CAROTID ARTERY: Unremarkable. No significant stenosis. No dissection or occlusion. LEFT EXTERNAL CAROTID ARTERY: Unremarkable. No occlusion. LEFT EXTRACRANIAL VERTEBRAL ARTERY: Unremarkable. No significant stenosis. No dissection or occlusion. BRACHIOCEPHALIC AND SUBCLAVIAN ARTERIES: Unremarkable as visualized. No occlusion or significant stenosis. LUNG APICES: Unremarkable as visualized. HEAD and NECK: BONES/JOINTS: Unremarkable. No discrete lytic or blastic abnormalities. SOFT TISSUES: Unremarkable. CAROTID STENOSIS REFERENCE USING NASCET CRITERIA: % ICA stenosis = (1 - narrowest ICA diameter/diameter of distal cervical ICA) x 100. Mild - <50% stenosis. Moderate - 50-69% stenosis. Severe - 70-94% stenosis. Near occlusion - 95-99% stenosis. Occluded - 100% stenosis. CT/CTA Head AND Neck W/ Contrast IMPRESSION: Negative CTA carotid and CTA brain. Electronically Signed: Nicholas Hinds MD at 2:06 EDT ,
[2023-08-04] MEDS: Lactulose 20 GM/30 ML UDC PO ×3 (00:33→13:27)
--- NOTE | 2023-08-04 03:04 | PCM.HP.STD ---
HPI - General General Date of Admission: 08/04/23 Date of Service: 08/04/23 Chief Complaint: Confusion HPI Narrative XAVIER MARC, is a 52 M with a significant history of hereditary hemochromatosis who presents emergency department with confusion. Associated with symptoms is expressive aphasia. Also per patient had apraxia when he tried to do asdm-vh-ffam test with his left leg. He denies any weakness or vision changes. His symptoms started about 5 and half hours prior to presentation. His symptoms improved. [facility] Medical History Alcohol use Anxiety Arthritis back injections Back pain BiPAP (biphasic positive airway pressure) dependence CAD (coronary artery disease) cyst removal right shoulder Diabetes Dietary restriction Encounter for screening for COVID-19 History of hemochromatosis History of steroid therapy History of stress test Hx of echocardiogram Hyperlipidemia Hypertension Impetigo Lab test positive for detection of COVID-19 virus Non-smoker right foot surgery Spinal stenosis Thyroid disease Wears glasses Home Medications amlodipine 2.5 mg tablet 2.5 mg PO QHS 11/19/13 [History Last Taken Unknown] glimepiride 2 mg tablet 1 tab PO BID diabetes 11/19/13 [History Last Taken Unknown] levothyroxine 200 mcg tablet 200 mcg PO MOTUWETHFR hypothyroidism 11/19/13 [History Last Taken 03/23/16 05:30 200 MCG] metformin 1,000 mg tablet 1,000 mg PO BID diabetes 11/19/13 [History Last Taken Unknown] metoprolol tartrate 50 mg tablet 50 mg PO QHS Hypertension 11/19/13 [History Last Taken 03/23/16 05:30 50 MG] olmesartan 40 mg-hydrochlorothiazide 25 mg tablet 1 tab PO DAILY Hypertension 11/19/13 [History Last Taken Unknown] cetirizine 10 mg tablet 10 mg PO DAILY allergies 12/23/13 [History Last Taken Unknown] aspirin 81 mg tablet,delayed release 81 mg PO DAILY 02/28/17 [History Last Taken 05/29/21] duloxetine 60 mg capsule,delayed release 30 mg PO DAILY antidepressant/nerve pain 02/28/17 [History Last Taken 06/02/21 07:00 60 MG] rosuvastatin 10 mg tablet 10 mg PO DAILY 02/28/17 [History Last Taken Unknown] dulaglutide 1.5 mg/0.5 mL subcutaneous pen injector 1.5 mg SQ QWEEK 08/08/17 [History Last Taken Unknown] cholecalciferol (vitamin D3) 125 mcg (5,000 unit) capsule 6,000 unit PO DAILY bone density 03/18/19 [History Last Taken Unknown] meclizine 25 mg tablet (Motion Sickness Relief (meclizine)) 25 mg PO PRN PRN Dizziness 03/18/19 [History Last Taken Unknown] Potassium Chloride [Klor-Con M20] 20 meq PO SUMOTUWETHFR hypokalemia 09/06/20 [History Last Taken Unknown] potassium chloride 20 mEq tablet,extended release(part/cryst) 40 meq PO SA 11/09/20 [History Last Taken Unknown] levothyroxine 100 mcg tablet 100 mcg PO SUSA hypothroidism 05/31/21 [History Last Taken 06/02/21 07:00 100 mcg] hydrocodone-acetaminophen 5-325mg 5mg-325mg 1 tab PO Q6H 4 days #20 tabs 06/02/21 [Rx Last Taken Unknown] dapagliflozin propanediol 10 mg tablet 10 mg PO DAILY diabetes 08/04/21 [History Last Taken Unknown] erythromycin 5 mg/gram (0.5 %) eye ointment 0.5 inch ophthalmic (eye) TID left eye conjunctivitis #1 g 10/01/21 [Rx Last Taken Unknown] dulaglutide subcut diabetes 08/04/23 [History Last Taken Unknown] duloxetine 30 mg capsule,delayed release 30 mg PO anxiety 08/04/23 [History Last Taken Unknown] rosuvastatin 20 mg tablet (Crestor) 20 mg PO DAILY high cholesterol 08/04/23 [History Last Taken Unknown] Allergy/AdvReac Type Severity Reaction Status Date / Time No Known Allergies Allergy Verified 08/03/23 22:41 Family History Father Hyperlipidemia Hypertension Mother Heart disease Surgical History H/O hernia repair History of liver biopsy History of surgical removal of ganglion cyst Hx of foot surgery Social History Smoking Status: Never smoker ROS ROS Narrative Pertinent positives and pertinent negatives as noted in HPI. All other systems were reviewed and are negative Vital Signs Vital Signs Vital Signs: 08/03/23 22:44 08/03/23 23:24 08/04/23 00:00 Temperature 97 F L Temperature Source Temporal Pulse Rate 80 73 78 Respiratory Rate 18 17 20 H Blood Pressure 177/78 H 168/90 H 155/99 H Blood Pressure Mean 111 116 117 Pulse Ox 98 97 98 Oxygen Delivery Method Room Air Room Air Room Air 08/04/23 01:00 08/04/23 02:00 08/04/23 02:51 Temperature 98.3 F Temperature Source Temporal Pulse Rate 85 78 85 Respiratory Rate 15 18 21 H Blood Pressure 172/90 H 163/89 H 164/94 H Blood Pressure Mean 117 113 117 Pulse Ox 98 98 98 Oxygen Delivery Method Room Air Room Air Weight Weight: 114.532 kg Body Mass Index (BMI) 35.2 Physical Exam Narrative Physical exam: General: Well-nourished, well-developed. Head: Normocephalic, atraumatic, no tenderness Eyes: Vision is grossly intact. EOMI ENT, no trauma, moist mucous membranes, no rhinorrhea Neck: Nontender, No thyromegaly. CVS: Regular rate and rhythm. S1-S2 present. No murmur, gallop or rub. Respiratory : clear to auscultation bilaterally, chest wall nontender Abdomen: Soft, nontender, nondistended, normal bowel sounds, no masses : Deferred Back: Nontender, no CVA tenderness, no midline spinal tenderness, deformities, step-offs Extremities: Nontender full range of motion, no trauma Skin: Normal color, no trauma, abrasions Neuro: Alert, expressive aphasia. Initially with apraxia with doing qjvd-uz-ysqk test with his left leg. Upon persistence orientation could do xwxz-vy-nzra test with his left leg. Could do wkah-kb-ztbg test with his right leg. Otmbth-fg-phgf test normal bilateral. Strength 5 out of 5 throughout. Deep tendon reflexes of the knee Jerk and elbow reflex not hyperreflexia bilateral. Psychiatry: Normal mood. Normal affect. Not depressed. Not anxious. Results Lab / Micro Data 08/03/23 22:43 08/03/23 22:43 Labs: Laboratory Results - last 24 hr 08/03/23 22:42: POC Glucose 170 H 08/03/23 22:43: WBC 9.7, RBC 5.06, Hgb 15.7, Hct 44.9, MCV 88.7, MCH 31.0, MCHC 35.0, RDW Std Deviation 37.3, RDW Coeff of [place]elia 11.7, Plt Count 259, MPV 10.0, Immature Gran % (Auto) 0.300, Neut % (Auto) 58.3, Lymph % (Auto) 31.0, [place] % (Auto) 8.1, Eos % (Auto) 1.5, Baso % (Auto) 0.8, Absolute Neuts (auto) 5.6, Absolute Lymphs (auto) 3.01, Nucleated RBC % 0, Sodium 137, Potassium 3.3 L, Chloride 104, Carbon Dioxide 25.0, Anion Gap 8, BUN 13, Creatinine 1.05, Estim Creat Clear Calc 85.66, Est GFR (MDRD) Af Amer 94, Est GFR (MDRD) Non-Af 78, BUN/Creatinine Ratio 12.4, Glucose 163 H, Calcium 9.1, Total Bilirubin 0.60, AST 16, ALT 25, Alkaline Phosphatase 90, Ammonia 37.0 H, Troponin I High Sens 13, Total Protein 7.7, Albumin 4.0, Globulin 3.7, Albumin/Globulin Ratio 1.1 08/03/23 23:40: Urine Color Yellow, Urine Clarity Clear, Urine pH 7.0, Ur Specific [place] 1.010, Urine Protein Negative, Urine Glucose (UA) 1000 H, Urine Ketones Negative, Urine Occult Blood 10 H, Urine Nitrite Negative, Urine Bilirubin Negative, Urine Urobilinogen Normal, Ur Leukocyte Esterase Negative, Urine RBC 0 SEEN, Urine WBC 0 SEEN, Ur Squamous Epith Cells 0 SEEN, Urine Bacteria 0 SEEN, Urine Mucus 0 SEEN Micro: Microbiology 08/03/23 23:44 Nasal Secretion SARS-CoV-2 & FLU Antigen (Rapid) - Final Radiology Impression Brain CT 08/03/23 22:57 IMPRESSION: Negative head/brain CT without intravenous contrast. AIDOC was utilized to assist in identifying pertinent positive findings. Electronically Signed: Nicholas Hinds MD at 23:39 EDT , Chest X-Ray 08/03/23 23:20 IMPRESSION: No acute disease. Electronically Signed: Nicholas Hinds MD at 23:52 EDT , Head/Neck CTA 08/04/23 00:19 IMPRESSION: Negative CTA carotid and CTA brain. Electronically Signed: Nciholas Hinds MD at 2:06 EDT , Assessment & Plan Assessment/Plan (1) Expressive aphasia: (2) Stroke-like symptoms: PLAN: Plan Strokelike symptoms Outside window for for tPA. Brain CT was interpreted by radiologist as no acute process. Impression of head CT by hospitalist: Agrees. Serial NINDS NIH Scale ordered Lipid profile and A1c ordered. Physical therapy, occupational therapy and speech therapy to work with patient. N.p.o. until bedside swallow eval. Daily aspirin continued. Add Plavix.. High intensity statin continued Permissive hypertension. Control blood pressure with labetalol for systolic blood pressure of more than 220 or diastolic blood pressure of more than 120. Hold home amlodipine. MRI brain ordered Echocardiogram ordered. Check TSH. Check and B12. Diabetes mellitus Blood pressure is stable. Glimepiride continued. Accu-Chek with correction scale insulin continued. Hyperammonemia Mild likely his encephalopathy is not from hyperammonemia. Received lactulose at the emergency department and continued. Trend CMP. Trend ammonia. Hypertension Blood pressure is not within goal Hold home blood pressure medication for permissive hypertension. Trend blood pressure and adjust blood pressure medications. DVT prophylaxis SCDs ordered Time spent in the patient's overall evaluation,decision-making process, review of diagnostic data, adjustment of management, discussion with other providers, nursing nursing and ancillary staff involved in patient's care documentation, 75 minutes. Charges/Coding Visit Charges Inpatient E&M: 84748 Init Hosp L3
[2023-08-04 03:47] LABS: Alcohol, Blood (Medical)-Serum < 3.0 mg/dL
[2023-08-04 03:58] LABS: Amphetamine Urine VISTA NEGATIVE (<1000 ng/mL); Barbiturate Urine VISTA NEGATIVE (< 200 ng/mL); Benzodiazepine Urine VISTA NEGATIVE (< 200 ng/mL); Cocaine Urine VISTA NEGATIVE (< 300 ng/mL); Ecstacy Urine VISTA NEGATIVE (< 500 ng/mL); Methadone Urine VISTA NEGATIVE (< 300 ng/mL); PCP Urine VISTA NEGATIVE (< 25 ng/mL); THC Urine VISTA NEGATIVE (< 50 ng/mL); Vista UDS pH Range 6
--- NOTE | 2023-08-04 04:46 | MRI_ITS ---
HISTORY: CVA, confusion, aphasia. TECHNIQUE: Multiplanar and multisequence MR images of the brain were obtained without contrast. 291 images. COMPARISON: CT earlier same day. FINDINGS: BRAIN PARENCHYMA: Very mild chronic white matter changes. No abnormal focus of restricted diffusion. No acute intracranial hemorrhage identified. CSF SPACES: Cerebral ventricles, cortical sulci, and other extra-axial CSF spaces within normal limits in size for age. No significant midline shift or other mass effect.No extra-axial fluid collection. VASCULAR SYSTEM: Major intracranial flow voids are maintained. PARANASAL SINUSES AND MASTOID AIR CELLS: No significant air fluid levels. ORBITS: Symmetric contents. MRI/Brain without Contrast IMPRESSION: No evidence for acute infarct. Very mild chronic white matter changes. Electronically Signed: Nora Valles MD at 10:44 EDT ,
[2023-08-04] MEDS: Clopidogrel Bisulfate 75 MG Tablet PO (05:41)
[2023-08-04 06:34] LABS: Absolute Lymphocyte Count 1.92 X10^3/uL (0.83-4.51); Absolute Neutrophil Count 7.3 X10^3/uL (2.0-7.7); Basophil# 0.05 X10^3/uL; Basophil% 0.5 % (0-1); Eosinophil# 0.01 X10^3/uL; Eosinophils% 0.1 % (0-5); Hematocrit 44.5 % (40-54); Hemoglobin 15.9 g/dL (13.0-16.5); Lymphocyte # 1.92 X10^3/ul (0.83-4.51); Lymphocyte % 19.4 % (19-41); Mean Corp Hgb Conc 35.7 g/dL (32-36); Mean Corpuscular Hgb 31.5 pg (27.0-32.0); Mean Corpuscular Volume 88.3 fL (80-94); Monocyte% 6.1 % (0-10); NRBC Flagged by Analyzer 0 % (0-5); Neutrophil # 7.25 X10^3/uL (2.7-7.7); Neutrophil % 73.4 % (47-70); Platelet Count 258 K/mm3 (150-450); RBC Distribution Width CV 11.7 % (11.6-14.6); RBC Distribution Width SD 37.6 fl (35.1-43.9); Red Blood Count 5.04 M/mm3 (4.6-6.2); White Blood Count 9.9 K/mm3 (4.4-11.0)
[2023-08-04 07:02] LABS: Bedside Glucose 131 mg/dL (74-106)
[2023-08-04 07:03] LABS: Prothrombin Time (Protime)PT. 13.3 SECONDS (11.7-14.9)
[2023-08-04 07:16] LABS: Anion Gap 10 (5-15); BUN 11 mg/dL (7-18); BUN/Creat Ratio 11.9 RATIO (10-20); Calcium,Total 9.4 mg/dL (8.5-10.1); Chloride 106 mmol/L (98-107); Creatinine, Serum 0.92 mg/dL (0.70-1.30); EST Glomerular Filtration Rate 90 mL/min (>60); Est Glom Filt Rate - Afr Amer 109 mL/min (>60); Estimated Creatinine Clearance 94.78 ml/min; Glucose 128 mg/dL (74-106); Potassium 3.4 mmol/L (3.5-5.1); Sodium Level 139 mmol/L (136-145); Thyroid Stim Hormone (TSH) 0.77 uIU/mL (0.358-3.74)
[2023-08-04] MEDS: Potassium Chloride 10mEq/100mL 10 MEQ/100 ML IV.SOLN. 100 MEQ IV BOLUS ×2 (11:46→13:26)
[2023-08-04] MEDS: 0.9% Saline Lock 10 ML Syringe IV (11:46)
[2023-08-04] MEDS: Aspirin E.C. 81 MG Tablet PO (11:47)
[2023-08-04 13:11] LABS: Bedside Glucose 181 mg/dL (74-106)
[2023-08-04] MEDS: Levothyroxine 100 MCG Tablet PO (13:26)
[2023-08-04] MEDS: DULoxetine Hcl 30 MG Capsule PO (13:26)
--- NOTE | 2023-08-04 13:40 | PCM.DC.SUM ---
Providers Date of Admission: 08/04/23 Date of Discharge: 08/04/23 Primary Care Physician: Dr. Berenice Tarango DO Reason For Visit: Word finding difficulty Diagnosis Discharge Diagnosis (1) Expressive aphasia: Status: Acute Code(s): R47.01 - Aphasia (2) TIA (transient ischemic attack): Status: Acute Code(s): G45.9 - Transient cerebral ischemic attack, unspecified (3) Hypertension: Status: Chronic Code(s): I10 - Essential (primary) hypertension (4) Hypothyroidism: Status: Acute Code(s): E03.9 - Hypothyroidism, unspecified (5) History of hemochromatosis: Status: Acute Code(s): Z86.39 - Personal history of other endocrine, nutritional and metabolic disease (6) Sleep apnea: Status: Acute Code(s): G47.30 - Sleep apnea, unspecified Plan #TIA #DMII #HTN #hx hemachromatosis #TAQUERIA Medications at Discharge Home Medications amlodipine 2.5 mg tablet 2.5 mg PO QHS blood pressure 11/19/13 glimepiride 2 mg tablet 1 tab PO BID diabetes 11/19/13 levothyroxine 200 mcg tablet 200 mcg PO MOTUWETHFR hypothyroidism 11/19/13 metformin 1,000 mg tablet 1,000 mg PO BID diabetes 11/19/13 metoprolol tartrate 50 mg tablet 50 mg PO QHS Hypertension 11/19/13 olmesartan 40 mg-hydrochlorothiazide 25 mg tablet 1 tab PO DAILY Hypertension 11/19/13 cetirizine 10 mg tablet 10 mg PO DAILY allergies 12/23/13 duloxetine 60 mg capsule,delayed release 30 mg PO DAILY antidepressant/nerve pain 02/28/17 dulaglutide 1.5 mg/0.5 mL subcutaneous pen injector 1.5 mg SQ QWEEK 08/08/17 cholecalciferol (vitamin D3) 125 mcg (5,000 unit) capsule 6,000 unit PO DAILY bone density 03/18/19 Potassium Chloride [Klor-Con M20] 20 meq PO SUMOTUWETHFR hypokalemia 09/06/20 potassium chloride 20 mEq tablet,extended release(part/cryst) 40 meq PO SA 11/09/20 levothyroxine 100 mcg tablet 100 mcg PO SUSA hypothroidism 05/31/21 dapagliflozin propanediol 10 mg tablet 10 mg PO DAILY diabetes 08/04/21 aspirin 81 mg tablet,delayed release 81 mg PO DAILY 21 days #0 tabs 08/04/23 clopidogrel 75 mg tablet 75 mg PO DAILY 30 days #30 tabs 08/04/23 dulaglutide subcut diabetes 08/04/23 duloxetine 30 mg capsule,delayed release 30 mg PO DAILY anxiety 08/04/23 glimepiride 4 mg tablet 2 mg PO BIDCM diabetes 08/04/23 rosuvastatin 20 mg tablet (Crestor) 20 mg PO DAILY high cholesterol 08/04/23 Hospital Course Summary of Care Provided Minutes Spent on Discharge: 32 Hospital Course: Per HPI: XAVIER MARC, is a 52 M with a significant history of hereditary hemochromatosis who presents emergency department with confusion. Associated with symptoms is expressive aphasia. Also per patient had apraxia when he tried to do prbo-wn-edhj test with his left leg. He denies any weakness or vision changes. His symptoms started about 5 and half hours prior to presentation. His symptoms improved. INTERVAL HISTORY: Patient symptoms completely resolved, he reports that when he woke up that he knew what he was trying to say but other people could not understand the words that he said and he also was unable to understand the words that he was reading. MRI with no acute stroke, CTA head and neck negative. Given the specific nature of his symptoms and lack of any infectious or metabolic etiology that would explain symptoms high suspicion this was a TIA. Echocardiogram ordered however with the this would not happen for 2 more days and given patient's stability and complete lack of symptoms discussed risks and benefits of staying for echocardiogram versus having this done with his primary care physician and leaving on DAPT and patient was agreeable to the latter and verbalized his understanding. He had no complaints, discharge instructions as follows: DISCHARGE INSTRUCTIONS PLEASE READ *Please take this with you to your next doctors appointment* -You will be discharged on aspirin and Plavix and you will take both for 21 days followed by Plavix alone unless otherwise instructed by your primary care physician -Please continue rosuvastatin -It will be important that you contact your primary care physician's office after the on Saturday to schedule an echocardiogram with a bubble study to complete your work-up for your TIA -Please follow-up with neurology upon discharge, please call Dr. Lira's office upon discharge to schedule an establish care appointment for your TIA ) -Please call your primary care provider's office upon discharge to schedule a hospital follow up within 1 week. -For any concerning signs or symptoms please call 911 or proceed to the nearest emergency department Physical Exam Narrative General: Alert, oriented, no apparent distress HEENT: Atraumatic, normocephalic Eyes: Anicteric, normal conjunctiva, extraocular movements intact, pupils equal Neck: Supple Respiratory: Clear to auscultation bilaterally, normal respiratory effort Cardiovascular: Regular rate and rhythm GI: Soft, nontender, nondistended Extremities: No edema Musculoskeletal: Strength 5 out of 5 in right upper extremity, 5 out of 5 left upper extremity, 5 out of 5 right lower extremity, 5 out of 5 left lower extremity Neuro: No overt focal neurological deficits, cranial nerves II through XII intact, ipyhwc-cg-[id number] without significant difficulty bilaterally Skin: No rashes appreciated Psych: Cooperative Weight / BMI Weight Weight: 112.3 kg Body Mass Index (BMI) 35.5 ABG / Lab / Microbiology Data 08/04/23 06:21 08/04/23 06:21 Laboratory: Laboratory Results - last 24 hr 08/03/23 22:42: POC Glucose 170 H 08/03/23 22:43: WBC 9.7, RBC 5.06, Hgb 15.7, Hct 44.9, MCV 88.7, MCH 31.0, MCHC 35.0, RDW Std Deviation 37.3, RDW Coeff of [place]elia 11.7, Plt Count 259, MPV 10.0, Immature Gran % (Auto) 0.300, Neut % (Auto) 58.3, Lymph % (Auto) 31.0, [place] % (Auto) 8.1, Eos % (Auto) 1.5, Baso % (Auto) 0.8, Absolute Neuts (auto) 5.6, Absolute Lymphs (auto) 3.01, Nucleated RBC % 0, Sodium 137, Potassium 3.3 L, Chloride 104, Carbon Dioxide 25.0, Anion Gap 8, BUN 13, Creatinine 1.05, Estim Creat Clear Calc 85.66, Est GFR (MDRD) Af Amer 94, Est GFR (MDRD) Non-Af 78, BUN/Creatinine Ratio 12.4, Glucose 163 H, Calcium 9.1, Total Bilirubin 0.60, AST 16, ALT 25, Alkaline Phosphatase 90, Ammonia 37.0 H, Troponin I High Sens 13, Total Protein 7.7, Albumin 4.0, Globulin 3.7, Albumin/Globulin Ratio 1.1 08/03/23 23:40: Urine Color Yellow, Urine Clarity Clear, Urine pH 7.0, Ur Specific [place] 1.010, Urine Protein Negative, Urine Glucose (UA) 1000 H, Urine Ketones Negative, Urine Occult Blood 10 H, Urine Nitrite Negative, Urine Bilirubin Negative, Urine Urobilinogen Normal, Ur Leukocyte Esterase Negative, Urine RBC 0 SEEN, Urine WBC 0 SEEN, Ur Squamous Epith Cells 0 SEEN, Urine Bacteria 0 SEEN, Urine Mucus 0 SEEN, Urine Opiates Screen NEGATIVE, Urine Methadone Screen NEGATIVE, Ur Barbiturates Screen NEGATIVE, Ur Phencyclidine Scrn NEGATIVE, Ur Amphetamines Screen NEGATIVE, MDMA (Ecstasy) Screen NEGATIVE, U Benzodiazepines Scrn NEGATIVE, Urine Cocaine Screen NEGATIVE, U Cannabinoids Screen NEGATIVE, Ur Drug Screen Comment 08/04/23 03:15: Ethyl Alcohol < 3.0 08/04/23 06:21: WBC 9.9, RBC 5.04, Hgb 15.9, Hct 44.5, MCV 88.3, MCH 31.5, MCHC 35.7, RDW Std Deviation 37.6, RDW Coeff of [place] 11.7, Plt Count 258, MPV 10.0, Immature Gran % (Auto) 0.500, Neut % (Auto) 73.4 H, Lymph % (Auto) 19.4, [place] % (Auto) 6.1, Eos % (Auto) 0.1, Baso % (Auto) 0.5, Absolute Neuts (auto) 7.3, Absolute Lymphs (auto) 1.92, Nucleated RBC % 0, PT 13.3, INR 1.0, Sodium 139, Potassium 3.4 L, Chloride 106, Carbon Dioxide 23.0, Anion Gap 10, BUN 11, Creatinine 0.92, Estim Creat Clear Calc 94.78, Est GFR (MDRD) Af Amer 109, Est GFR (MDRD) Non-Af 90, BUN/Creatinine Ratio 11.9, Glucose 128 H, Calcium 9.4, Ammonia 26.0, TSH 0.77 08/04/23 06:27: POC Glucose 131 H 08/04/23 11:37: POC Glucose 181 H Microbiology: Microbiology 08/03/23 23:44 Nasal Secretion SARS-CoV-2 & FLU Antigen (Rapid) - Final Radiography Diagnostic Testing: Radiology Impression Brain CT 08/03/23 22:57 IMPRESSION: Negative head/brain CT without intravenous contrast. AIDOC was utilized to assist in identifying pertinent positive findings. Electronically Signed: Nicholas Hinds MD at 23:39 EDT , Chest X-Ray 08/03/23 23:20 IMPRESSION: No acute disease. Electronically Signed: Nicholas Hinds MD at 23:52 EDT , Head/Neck CTA 08/04/23 00:19 IMPRESSION: Negative CTA carotid and CTA brain. Electronically Signed: Nicholas Hinds MD at 2:06 EDT , Brain MRI 08/04/23 04:46 IMPRESSION: No evidence for acute infarct. Very mild chronic white matter changes. Electronically Signed: Nora Valles MD at 10:44 EDT , D/C Instructions Discharge Diet: - (DASH diet) Meaningful Use Info Meaningful Use Diagnoses (Choose all that apply): None applicable Discharge Plan Admission Admit Date/Time: 08/04/23 02:45 Primary Reason for Your Visit: Difficulty expressing words Attending Provider: Laverne Pretty Primary Care Provider: Berenice Tarango Consulting Providers: Johan Walker Instructions Patient Instructions: TIA Dc Additional Instructions / Restrictions: DISCHARGE INSTRUCTIONS PLEASE READ *Please take this with you to your next doctors appointment* -You will be discharged on aspirin and Plavix and you will take both for 21 days followed by Plavix alone unless otherwise instructed by your primary care physician -Please continue rosuvastatin -It will be important that you contact your primary care physician's office after the holiday on Saturday to schedule an echocardiogram with a bubble study to complete your work-up for your TIA -Please follow-up with neurology upon discharge, please call Dr. Lira's office upon discharge to schedule an establish care appointment for your TIA ( [phone]) -Please call your primary care provider's office upon discharge to schedule a hospital follow up within 1 week. -For any concerning signs or symptoms please call 911 or proceed to the nearest emergency department Discharge Orders/Prescriptions Prescriptions: New clopidogrel 75 mg Tablet 75 mg PO DAILY 30 Days Qty: 30 0RF Continued dapagliflozin propanediol 10 mg tablet 10 mg PO DAILY glimepiride 2 MG tablet 1 tab PO BID metformin 1,000 MG tablet 1,000 mg PO BID levothyroxine 200 MCG tablet 200 mcg PO MOTUWETHFR Patient Comments: takes w/50 mcg tablet to equal 250 mcg total Rx Instructions: 200mcg 5 days Sat and saturday olmesartan-hydrochlorothiazide 1 TAB tablet 1 tab PO DAILY amlodipine 2.5 MG tablet 2.5 mg PO QHS metoprolol tartrate 50 MG tablet 50 mg PO QHS cetirizine 10 MG tablet 10 mg PO DAILY duloxetine 60 MG capsule 30 mg PO DAILY dulaglutide 1.5 MG/0.5 ML pen injector 1.5 mg SQ QWEEK Rx Instructions: sundays cholecalciferol (vitamin D3) 5,000 UNIT capsule 6,000 unit PO DAILY potassium chloride 20 MEQ tablet 40 meq PO SA Potassium Chloride [Klor-Con M20] 20 MEQ Tab.Er.Prt 20 meq PO SUMOTUWETHFR levothyroxine 100 mcg Tablet 100 mcg PO SUSA duloxetine 30 mg capsule,delayed release(DR/EC) 30 mg PO DAILY rosuvastatin [Crestor] 20 mg tablet 20 mg PO DAILY dulaglutide [Trulicity] subcut glimepiride 4 mg tablet 2 mg PO BIDCM aspirin 81 MG tablet,delayed release (DR/EC) 81 mg PO DAILY 21 Days Qty: 0 0RF Referrals / Follow Up: Berenice Tarango DO [Primary Care Provider] - Within 1 Week Buster Lira MD [Non-Staff -Ordering Privileges] - ( -Please follow-up with neurology upon discharge, please call Dr. Lira's office upon discharge to schedule an establish care appointment for your TIA/mini stroke (ph [phone])) Disposition Disposition (needs filled in before D/C Order can be placed): Home, Self Care
[2023-08-06 16:30] LABS: Vitamin B12 193 pg/mL (211-911)
== END 2023-08-04 17:59 | disposition home or self-care (01) | DRG 69 ==
LOC: ED 23:08 → PCU 08-04 03:06
PROVIDERS: Admitting Provider Hospitalist; Emergency Provider Emergency Medicine; PCP Internal Medicine; Visit Provider Internal Medicine
DX: G45.9 Transient cerebral ischemic attack, unspecified (principal); E11.9 Type 2 diabetes mellitus without complications; E83.110 Hereditary hemochromatosis; I10 Essential (primary) hypertension; G47.33 Obstructive sleep apnea (adult) (pediatric); I25.10 Atherosclerotic heart disease of native coronary artery without angina pectoris; Z79.84 Long term (current) use of oral hypoglycemic drugs; Z79.899 Other long term (current) drug therapy; Z86.16 Personal history of COVID-19
CPT/HCPCS: 36415; 70450; 70496; 70498; 70551; 71045; 80048; 80053; 80307; 81001; 82077; 82140; 82607; 82962; 84443; 84484; 85025; 85610; 87428; 93005; 97161; 97165; 97802; 99285; Q9967; A4216

== ENCOUNTER → 2023-09-27 | Outpatient (CLI) | payer OTHER, SELFPAY ==
--- NOTE | 2023-09-27 13:58 | ECHOCS_ITS ---
Version 2 Reason For Study: TIA Procedure This was a 2D Doppler, Color Flow transthoracic echocardiogram. Contrast injection was performed. Exam performed in department. Left Ventricle Mildly dilated left ventricle. Mild concentric left ventricular hypertrophy. The left ventricular ejection fraction is 50 %. Stage 1 diastolic dysfunction. Right Ventricle Normal right ventricle. Atria The left atrium is mildly enlarged. Normal right atrium. Bubble contrast study is negative for PFO/ASD. Mitral Valve Trivial mitral valve insufficiency. Tricuspid Valve Trivial tricuspid valve insufficiency. Unable to estimate RV systolic pressure due to insufficient tricuspid regurgitant envelope. Aortic Valve Trisinus/trileaflet aortic valve. Pulmonic Valve The pulmonic valve is not well visualized. Great Vessels Normal sized aortic root. Pericardium/Pleural No pericardial effusion. Medication Performed a rapid injection of agitated mix of 9 cc saline and 1cc air to assess for atrial septal defect. Diluted definity 2ml given slow IV push to enhance endocardial definition. MMode/2D Measurements & Calculations LVIDd: 6.1 cm IVSd: 1.3 cm Ao root diam: 3.2 cm LVIDs: 4.3 cm LVPWd: 1.3 cm RVDd: 3.4 cm FS: 29.9 % LAV(MOD-bp): 43.3 ml LVAd ap4: 39.1 cm2 LVAd ap2: 35.7 cm2 LAV(MOD-bp) Indexed: 18.7 ml/m2 LVLd ap4: 8.3 cm LVLd ap2: 8.2 cm LAV(MOD-sp2): 38.5 ml EDV(MOD-sp4): 152.6 ml EDV(MOD-sp2): 128.8 ml LAV(MOD-sp4): 48.8 ml EDV(sp4-el): 156.3 ml EDV(sp2-el): 131.6 ml LVAs ap4: 26.5 cm2 LVAs ap2: 23.7 cm2 LVLs ap4: 7.1 cm LVLs ap2: 7.4 cm ESV(MOD-sp4): 82.3 ml ESV(MOD-sp2): 63.6 ml ESV(sp4-el): 84.1 ml ESV(sp2-el): 64.3 ml EF(MOD-sp4): 46.1 % EF(MOD-sp2): 50.6 % EF(sp4-el): 46.2 % SV(MOD-sp4): 70.3 ml SV(MOD-sp2): 65.2 ml SV(sp4-el): 72.2 ml LA A4 area: 17.9 cm2 LA dimension(2D): 3.9 cm RA A4 area: 11.5 cm2 TAPSE: 2.7 cm Time Measurements MV dec time: 0.30 sec Doppler Measurements & Calculations MV E max jon: 79.7 cm/sec Lat Peak E' Jon: 7.8 cm/sec Med Peak E' Jon: 6.9 cm/sec MV A max jon: 110.7 cm/sec E/E' lat: 10.3 E/E' med: 11.6 MV E/A: 0.72 Ao V2 max: 148.5 cm/sec LV V1 max: 132.5 cm/sec MV dec slope: 267.0 cm/sec2 Ao max P.8 mmHg LV V1 max P.0 mmHg Ao V2 mean: 107.3 cm/sec Ao mean P.2 mmHg Ao V2 VTI: 30.9 cm PA V2 max: 100.1 cm/sec ECHO/Echo Complete W/ Contrast Interpretation Summary Mildly dilated left ventricle. Mild concentric left ventricular hypertrophy. The left ventricular ejection fraction is 50 %. Stage 1 diastolic dysfunction. The left atrium is mildly enlarged. Bubble contrast study is negative for PFO/ASD. Ordering Physician: Berenice Tarango Referring Physician: Berenice Tarango Performed By: Lynnette Martin, FELISHA, RVT
== END | disposition home or self-care (01) ==
LOC: CVS 13:56
PROVIDERS: PCP Internal Medicine; Referring Provider Internal Medicine; Visit Provider Internal Medicine
DX: G45.9 Transient cerebral ischemic attack, unspecified (principal)
CPT/HCPCS: 93306; Q9957; A4216; C8929

== ENCOUNTER → 2023-09-30 | Outpatient (CLI) | payer OTHER, SELFPAY ==
[2023-09-30 07:12] LABS: Absolute Lymphocyte Count 1.77 X10^3/uL (0.83-4.51); Basophil# 0.07 X10^3/uL; Basophil% 1.3 % (0-1); Eosinophil# 0.15 X10^3/uL; Eosinophils% 2.7 % (0-5); Hematocrit 44.5 % (40-54); Hemoglobin 15.5 g/dL (13.0-16.5); Lymphocyte # 1.77 X10^3/ul (0.83-4.51); Lymphocyte % 32.2 % (19-41); Mean Corp Hgb Conc 34.8 g/dL (32-36); Mean Corpuscular Hgb 31.6 pg (27.0-32.0); Mean Corpuscular Volume 90.6 fL (80-94); Mean Platelet Vol. 9.5 fl (6.2-12.0); Monocyte# 0.51 X10^3/uL; Monocyte% 9.3 % (0-10); NRBC Flagged by Analyzer 0 % (0-5); Neutrophil # 2.99 X10^3/uL (2.7-7.7); Neutrophil % 54.3 % (47-70); Platelet Count 267 K/mm3 (150-450); RBC Distribution Width CV 11.9 % (11.6-14.6); RBC Distribution Width SD 39.2 fl (35.1-43.9); Red Blood Count 4.91 M/mm3 (4.6-6.2); White Blood Count 5.5 K/mm3 (4.4-11.0)
[2023-09-30 07:39] LABS: AST(SGOT) 13 U/L (15-37); Alanine Aminotransfer ALT/SGPT 22 U/L (16-61); Albumin, Serum 3.9 g/dL (3.2-5.0); Alkaline Phosphatase 89 U/L (45-117); Anion Gap 5 (5-15); BUN 18 mg/dL (7-18); BUN/Creat Ratio 19.7 RATIO (10-20); Chloride 110 mmol/L (98-107); Creatinine, Serum 0.91 mg/dL (0.70-1.30); EST Glomerular Filtration Rate 92 mL/min (>60); Est Glom Filt Rate - Afr Amer 111 mL/min (>60); Ferritin 108 ng/mL (26-388); Globulin 3.8 g/dL (2.2-4.2); Glucose 178 mg/dL (74-106); Potassium 3.6 mmol/L (3.5-5.1); Protein, Total 7.7 g/dL (6.4-8.2); Sodium Level 141 mmol/L (136-145)
[2023-10-01 04:07] LABS: AFP, Tumor Marker < 1.8 ng/mL (0.0-8.4)
== END | disposition home or self-care (01) ==
LOC: LAB 06:57
PROVIDERS: PCP Internal Medicine; Referring Provider Nurse Practitioner Family; Visit Provider Nurse Practitioner Family
DX: E83.110 Hereditary hemochromatosis (principal)
CPT/HCPCS: 36415; 80053; 82105; 82728; 85025

== ENCOUNTER → 2023-12-09 | Outpatient (CLI) | payer OTHER, SELFPAY ==
[2023-12-09 10:33] LABS: Erythrocyte Sedimentation Rate 10 mm/hr (0-20)
[2023-12-09 11:00] LABS: Cholesterol 168 mg/dL (200); High Density Lipoprotein 55 mg/dL; Triglycerides 141 mg/dL; Very Low Density Lipoprotein 28 mg/dL (5-40)
[2023-12-10 12:09] LABS: ANTINUCLEAR ANTIBODIES DIRECT Negative (Negative)
[2023-12-18 16:09] LABS: Anti-Cardiolipin Ab, IgA, Qn < 9 APL U/mL (0-11); Anti-Cardiolipin Ab, IgG, Qn < 9 GPL U/mL (0-14); Anti-Cardiolipin Ab, IgM, Qn < 9 MPL U/mL (0-12); Anti-Thrombin 3 AG, Immunol 96 % (72-124); Antithrombin 3 Function 115 % (75-135); Complement C3 144 mg/dL (82-167); Complement CH50 > 60 U/mL (>41); Dilute Russell Viper Venom 39.8 sec (0.0-47.0); Interpretation Comment: (.); Intrinsic Factor Ab 13.5 AU/mL (0.0-1.1); PTT-LA 40.2 sec (0.0-43.5); Protein C Antigen 119 % (60-150); Protein C, Functional 137 % (73-180); Protein S, Free 117 % (61-136); Protein S, Funtional 119 % (63-140); Protein S, Total 119 % (60-150); dPT Confirm Ratio 1.23 Ratio (0.00-1.34)
== END | disposition home or self-care (01) ==
LOC: MTLAB 08:18
PROVIDERS: PCP Internal Medicine; Referring Provider Psychiatry & Neurology Neurology; Visit Provider Psychiatry & Neurology Neurology
DX: G45.9 Transient cerebral ischemic attack, unspecified (principal); E78.5 Hyperlipidemia, unspecified
CPT/HCPCS: 36415; 80061; 81240; 81241; 85300; 85301; 85302; 85303; 85305; 85306; 85652; 86038; 86147; 86160; 86162; 86225; 86235; 86340

== ENCOUNTER → 2023-12-30 | Outpatient (CLI) | payer OTHER, SELFPAY ==
[2023-12-30 07:58] LABS: Absolute Lymphocyte Count 2.04 X10^3/uL (0.83-4.51); Absolute Neutrophil Count 4.4 X10^3/uL (2.0-7.7); Basophil# 0.05 X10^3/uL; Basophil% 0.7 % (0-1); Eosinophil# 0.28 X10^3/uL; Eosinophils% 3.8 % (0-5); Hematocrit 44.4 % (40-54); Hemoglobin 15.1 g/dL (13.0-16.5); Lymphocyte # 2.04 X10^3/ul (0.83-4.51); Lymphocyte % 27.8 % (19-41); Mean Corpuscular Hgb 30.9 pg (27.0-32.0); Mean Platelet Vol. 9.7 fl (6.2-12.0); Monocyte# 0.58 X10^3/uL; Monocyte% 7.9 % (0-10); NRBC Flagged by Analyzer 0 % (0-5); Neutrophil # 4.36 X10^3/uL (2.7-7.7); Neutrophil % 59.4 % (47-70); Platelet Count 270 K/mm3 (150-450); RBC Distribution Width SD 40.3 fl (35.1-43.9); Red Blood Count 4.88 M/mm3 (4.6-6.2); White Blood Count 7.3 K/mm3 (4.4-11.0)
[2023-12-30 08:39] LABS: AST(SGOT) 14 U/L (15-37); Alanine Aminotransfer ALT/SGPT 27 U/L (16-61); Albumin, Serum 3.9 g/dL (3.2-5.0); Alkaline Phosphatase 95 U/L (45-117); Anion Gap 5 (5-15); BUN 18 mg/dL (7-18); BUN/Creat Ratio 17.1 RATIO (10-20); Calcium,Total 9.3 mg/dL (8.5-10.1); Chloride 108 mmol/L (98-107); Creatinine, Serum 1.05 mg/dL (0.70-1.30); EST Glomerular Filtration Rate 78 mL/min (>60); Est Glom Filt Rate - Afr Amer 94 mL/min (>60); Ferritin 95 ng/mL (26-388); Globulin 3.8 g/dL (2.2-4.2); Glucose 186 mg/dL (74-106); LDH 152 U/L (87-241); Potassium 3.8 mmol/L (3.5-5.1); Protein, Total 7.7 g/dL (6.4-8.2); Sodium Level 140 mmol/L (136-145)
== END | disposition home or self-care (01) ==
LOC: LAB 07:02
PROVIDERS: PCP Internal Medicine; Referring Provider Internal Medicine Medical Oncology; Visit Provider Internal Medicine Medical Oncology
DX: E83.110 Hereditary hemochromatosis (principal)
CPT/HCPCS: 36415; 80053; 82728; 83615; 85025

== ENCOUNTER → 2024-06-22 | Outpatient (CLI) | payer OTHER, SELFPAY ==
[2024-06-22 08:26] LABS: Absolute Lymphocyte Count 1.89 X10^3/uL (0.83-4.51); Absolute Neutrophil Count 3.5 X10^3/uL (2.0-7.7); Basophil# 0.04 X10^3/uL; Basophil% 0.7 % (0-1); Eosinophil# 0.16 X10^3/uL; Eosinophils% 2.6 % (0-5); Hematocrit 42.8 % (40-54); Hemoglobin 14.7 g/dL (13.0-16.5); Lymphocyte # 1.89 X10^3/ul (0.83-4.51); Lymphocyte % 31.1 % (19-41); Mean Corp Hgb Conc 34.3 g/dL (32-36); Mean Corpuscular Hgb 31.2 pg (27.0-32.0); Mean Corpuscular Volume 90.9 fL (80-94); Mean Platelet Vol. 9.3 fl (6.2-12.0); Monocyte% 8.2 % (0-10); NRBC Flagged by Analyzer 0 % (0-5); Neutrophil # 3.47 X10^3/uL (2.7-7.7); Neutrophil % 57.1 % (47-70); Platelet Count 259 K/mm3 (150-450); Red Blood Count 4.71 M/mm3 (4.6-6.2); White Blood Count 6.1 K/mm3 (4.4-11.0)
[2024-06-22 09:12] LABS: ALB/GLOB Ratio 1.1 RATIO (0.9-2.4); AST(SGOT) 19 U/L (15-37); Alanine Aminotransfer ALT/SGPT 27 U/L (16-61); Albumin, Serum 4.1 g/dL (3.2-5.0); Alkaline Phosphatase 87 U/L (45-117); Anion Gap 9 (5-15); BUN 23 mg/dL (7-18); BUN/Creat Ratio 21.9 RATIO (10-20); Calcium,Total 9.1 mg/dL (8.5-10.1); Chloride 104 mmol/L (98-107); Creatinine, Serum 1.05 mg/dL (0.70-1.30); EST Glomerular Filtration Rate 78 mL/min (>60); Est Glom Filt Rate - Afr Amer 94 mL/min (>60); Ferritin 109 ng/mL (26-388); Globulin 3.7 g/dL (2.2-4.2); Glucose 139 mg/dL (74-106); LDH 151 U/L (87-241); Potassium 3.7 mmol/L (3.5-5.1); Protein, Total 7.8 g/dL (6.4-8.2); Sodium Level 138 mmol/L (136-145)
== END | disposition home or self-care (01) ==
PROVIDERS: PCP Internal Medicine; Referring Provider Internal Medicine Medical Oncology; Visit Provider Internal Medicine Medical Oncology
DX: E83.110 Hereditary hemochromatosis (principal)
CPT/HCPCS: 36415; 80053; 82728; 83615; 85025

== ENCOUNTER → 2024-09-17 | Outpatient (CLI) | payer OTHER, SELFPAY ==
[2024-09-17 08:06] LABS: AST(SGOT) 18 U/L (15-37); Alanine Aminotransfer ALT/SGPT 22 U/L (16-61); Albumin, Serum 4.1 g/dL (3.2-5.0); Alkaline Phosphatase 104 U/L (45-117); Bilirubin, Direct 0.23 mg/dL (0.00-0.30); Cholesterol 134 mg/dL (200); Globulin 3.5 g/dL (2.2-4.2); High Density Lipoprotein 52 mg/dL; Protein, Total 7.6 g/dL (6.4-8.2); Triglycerides 90 mg/dL; Very Low Density Lipoprotein 18 mg/dL (5-40)
== END | disposition home or self-care (01) ==
LOC: LAB 06:51
PROVIDERS: PCP Internal Medicine; Referring Provider Psychiatry & Neurology Neurology; Visit Provider Psychiatry & Neurology Neurology
DX: E78.5 Hyperlipidemia, unspecified (principal)
CPT/HCPCS: 36415; 80061; 80076

== ENCOUNTER → 2024-12-22 | Outpatient (CLI) | payer OTHER, SELFPAY ==
[2024-12-22 17:12] LABS: Absolute Lymphocyte Count 2.42 X10^3/uL (0.83-4.51); Absolute Neutrophil Count 5.1 X10^3/uL (2.0-7.7); Basophil# 0.08 X10^3/uL; Eosinophil# 0.12 X10^3/uL; Eosinophils% 1.4 % (0-5); Hematocrit 40.1 % (40-54); Hemoglobin 14.3 g/dL (13.0-16.5); Lymphocyte # 2.42 X10^3/ul (0.83-4.51); Lymphocyte % 28.9 % (19-41); Mean Corp Hgb Conc 35.7 g/dL (32-36); Mean Corpuscular Hgb 31.6 pg (27.0-32.0); Mean Corpuscular Volume 88.7 fL (80-94); Mean Platelet Vol. 9.4 fl (6.2-12.0); Monocyte# 0.62 X10^3/uL; Monocyte% 7.4 % (0-10); NRBC Flagged by Analyzer 0 % (0-5); Neutrophil # 5.11 X10^3/uL (2.7-7.7); Neutrophil % 61.1 % (47-70); Platelet Count 250 K/mm3 (150-450); RBC Distribution Width CV 11.9 % (11.6-14.6); RBC Distribution Width SD 38.1 fl (35.1-43.9); Red Blood Count 4.52 M/mm3 (4.6-6.2); White Blood Count 8.4 K/mm3 (4.4-11.0)
[2024-12-22 17:40] LABS: ALB/GLOB Ratio 1.2 RATIO (0.9-2.4); AST(SGOT) 18 U/L (15-37); Alanine Aminotransfer ALT/SGPT 23 U/L (16-61); Albumin, Serum 4.1 g/dL (3.2-5.0); Alkaline Phosphatase 80 U/L (45-117); Anion Gap 9 (5-15); BUN 17 mg/dL (7-18); BUN/Creat Ratio 16.3 RATIO (10-20); Calcium,Total 9.4 mg/dL (8.5-10.1); Chloride 103 mmol/L (98-107); Creatinine, Serum 1.04 mg/dL (0.70-1.30); EST Glomerular Filtration Rate 79 mL/min (>60); Est Glom Filt Rate - Afr Amer 95 mL/min (>60); Ferritin 96 ng/mL (26-388); Globulin 3.4 g/dL (2.2-4.2); Glucose 95 mg/dL (74-106); LDH 172 U/L (87-241); Protein, Total 7.5 g/dL (6.4-8.2); Sodium Level 135 mmol/L (136-145)
[2024-12-23 00:53] LABS: Xtra Tube EP Lab EXTRA TUBE
== END | disposition home or self-care (01) ==
LOC: LAB 16:51
PROVIDERS: PCP Internal Medicine; Referring Provider Internal Medicine Medical Oncology; Visit Provider Internal Medicine Medical Oncology
DX: E83.110 Hereditary hemochromatosis (principal)
CPT/HCPCS: 36415; 80053; 82728; 83615; 85025

== ENCOUNTER → 2025-06-08 | Outpatient (CLI) | payer OTHER, SELFPAY ==
--- NOTE | 2025-06-08 07:26 | US_ITS ---
PROCEDURE: ABDOMEN LIMITED 06/08/2025 REASON FOR EXAM: HH; SCREEN FOR HCC. History of hemochromatosis. TECHNIQUE: ABDOMEN LIMITED COMPARISON: Limited abdominal ultrasound, 04/03/2023 FINDINGS: Liver: 15.2 cm. Normal homogeneous parenchymal echogenicity. Portal venous flow is normal hepatopetal. Gallbladder: Normal. Common bile duct: 2 mm Pancreas: Obscured by overlying bowel gas. Kidneys: The right kidney measures 12.8 x 6.8 x 6.0 cm. The cortex measures 1.7 cm in thickness. The renal cortical echogenicity is normal. There are no focal abnormalities. There is no hydronephrosis. Aorta: Obscured by overlying bowel gas. IVC: Unremarkable as seen. US/Abdomen Limited IMPRESSION: 1. Normal size and echogenicity of the liver. 2. Otherwise unremarkable. Reading Location: [id number]
== END | disposition home or self-care (01) ==
LOC: US 07:23
PROVIDERS: PCP Internal Medicine; Referring Provider Nurse Practitioner Family; Visit Provider Nurse Practitioner Family
DX: E83.110 Hereditary hemochromatosis (principal)
CPT/HCPCS: 76705

== ENCOUNTER → 2025-06-14 | Outpatient (CLI) | payer OTHER, SELFPAY ==
[2025-06-14 08:33] LABS: AST(SGOT) 22 U/L (<=37); Alanine Aminotransfer ALT/SGPT 26 U/L (<=46); Albumin, Serum 4.5 g/dL (3.5-5.0); Alkaline Phosphatase 63 U/L (40-129); Anion Gap 12 (5-15); BUN 18 mg/dL (4-19); BUN/Creat Ratio 16.9 RATIO (10-20); Calcium,Total 9.5 mg/dL (7.6-11.0); Carbon Dioxide 26.2 mmol/L (21.0-32.0); Chloride 100 mmol/L (98-108); Ferritin 195 ng/mL (37-417); Globulin 2.7 g/dL (2.2-4.2); Glucose 101 mg/dL (70-99); Potassium 3.7 mmol/L (3.3-5.1)
[2025-06-14 12:04] LABS: Hematocrit 38.7 % (40-54); Hemoglobin 13.6 g/dL (13.0-16.5); Immature Granulocytes Count 0.010 X10^3/uL (0.0-0.0); Mean Corp Hgb Conc 35.1 g/dL (32-36); Mean Corpuscular Volume 90.2 fL (80-94); Mean Platelet Vol. 9.8 fl (6.2-12.0); NRBC Flagged by Analyzer 0 % (0-5); Platelet Count 226 K/mm3 (150-450); RBC Distribution Width CV 11.9 % (11.6-14.6); RBC Distribution Width SD 39.2 fl (35.1-43.9); Red Blood Count 4.29 M/mm3 (4.6-6.2); White Blood Count 6.2 K/mm3 (4.4-11.0)
== END | disposition home or self-care (01) ==
LOC: LAB 07:14
PROVIDERS: PCP Internal Medicine; Referring Provider Nurse Practitioner Family; Visit Provider Nurse Practitioner Family
DX: E83.110 Hereditary hemochromatosis (principal)
CPT/HCPCS: 36415; 80053; 82728; 85025

== ENCOUNTER → 2025-08-06 | Outpatient (CLI) | payer OTHER, SELFPAY ==
[2025-08-06 09:49] VITALS: BP 131/85; PULSE 69; RESP 18; O2SAT 100; BMI 34.2
--- NOTE | 2025-08-06 10:00 | CT_ITS ---
PROCEDURE: LIMITED CHEST CT CARDIAC ONLY 08/06/2025 REASON FOR EXAM: ELEVATED CT CA SCORE TECHNIQUE: Procedure Code: [id number] Modality: CT Procedure: LIMITED CHEST CT CARDIAC ONLY CONTRAST: None One or more dose reduction techniques were used (e.g., Automated exposure control, adjustment of the mA and/or kV according to patient size, use of iterative reconstruction technique). RADIATION DOSE SUMMARY: CTDlvol: 21.32 mGy DLP: 10.66 mGycm COMPARISON: None FINDINGS: Coronary artery calcification. The heart is nonenlarged. The lungs are clear. CT/Limited Chest CT Cardiac Only IMPRESSION: Coronary artery calcification. Reading Location: [place] [id number]
[2025-08-06 10:08] VITALS: BP 105/73; PULSE 70; RESP 18; O2SAT 99
[2025-08-06] MEDS: 0.9% Saline Lock 10 ML Syringe IV (10:15)
[2025-08-06] MEDS: Nitroglycerin SL (ED/IMG/CATH) 0.4 MG TABLET SL (10:15)
[2025-08-06 10:16] LABS: CREATININE FINGERSTICK 1.2 mg/dL (0.70-1.30); EGFR FINGERSTICK > 60.0000 mL/min (>60)
--- NOTE | 2025-08-19 17:36 | CCTA.WCONT ---
CCTA w/Cont Coronary Arteries Date of Study:: 08/06/25 Elevated calcium score Coronary Calcium Scoring: High-resolution Computed Tomographic imaging of the chest was performed on [08/06/2025], with particular attention paid to the coronary arteries. Intravenous contrast agent was administered per protocol and images reconstructed and displayed. LEFT MAIN CORONARY ARTERY: Arises from the left coronary cusp and is noted to be normal and bifurcates the left anterior descending artery and left circumflex artery [] LEFT ANTERIOR DESCENDING CORONARY ARTERY: Medium size vessel with eccentric proximal and mid segment calcification with nonocclusive with approximately 40 to 50% stenosis. The rest of the left anterior descending artery does not appear to have any high-grade stenosis. [] LEFT CIRCUMFLEX CORONARY ARTERY: Nondominant medium size vessel with a first prominent obtuse marginal branch with no significant atherosclerotic plaquing or stenosis present. [] RIGHT CORONARY ARTERY: Dominant right coronary artery arising from the right coronary cusp noted to have multiple areas of calcification in the proximal mid and distal region. There is focal plaque mixed morphology noted in the proximal region with probably 30 to 40% occlusion in the distal posterior descending artery has extensive calcification with at least 50 to 60% stenosis noted throughout. [] Calcium Scoring Interpretation: Different methods to categorize the overall amount of coronary plaque. Overall amount CAC SIS Visual of coronary plaque P1 Mild -100 <2 1-2 vessels with mild amount of plaque P2 Moderate 101-300 3-4 1-2 vessels with moderate amount, 3 vessels with mild amount of plaque P3 Severe 301-999 5-7 3 vessels with moderate amount, 1 vessel with severe amount of plaque P4 Extensive >1000 >8 2-3 vessels with severe amount of plaque Conclusion: CT angiogram demonstrating focal plaquing noted in the proximal and mid LAD and diffuse plaquing with at least moderate stenosis noted in the proximal and mid to distal right coronary artery.
== END | disposition home or self-care (01) ==
LOC: CT 09:25
PROVIDERS: PCP Internal Medicine; Referring Provider Internal Medicine; Visit Provider Internal Medicine
DX: R93.1 Abnormal findings on diagnostic imaging of heart and coronary circulation (principal)
CPT/HCPCS: 75574; 76380; Q9967

== ENCOUNTER → 2025-10-26 | Outpatient (CLI) | payer OTHER, SELFPAY ==
[2025-10-26 08:23] LABS: AST(SGOT) 20 U/L (<=37); Alanine Aminotransfer ALT/SGPT 21 U/L (<=46); Albumin, Serum 4.5 g/dL (3.5-5.0); Alkaline Phosphatase 47 U/L (40-129); Bilirubin, Direct 0.22 mg/dL (0.00-0.30); Cholesterol 101 mg/dL (<=200); Globulin 2.9 g/dL (2.2-4.2); Low Density Lipoprotein Calc. 38 mg/dL; Triglycerides 111 mg/dL; Very Low Density Lipoprotein 22 mg/dL (5-40); cholesterol:hdl ratio screen 2.35
== END | disposition home or self-care (01) ==
LOC: LAB 06:32
PROVIDERS: PCP Internal Medicine; Referring Provider Psychiatry & Neurology Neurology; Visit Provider Psychiatry & Neurology Neurology
DX: E78.5 Hyperlipidemia, unspecified (principal); G45.9 Transient cerebral ischemic attack, unspecified
CPT/HCPCS: 36415; 80061; 80076